=== PATIENT | female | born 1955 | race Caucasian/White ===

== ENCOUNTER 2016-09-28 12:27 | Inpatient (IN) | payer OTHER ==
[~2016-09-28] VITALS: Ht 170.2 cm; Wt 72.5 kg
[~2016-09-28 12:27] MED LIST: CLIN-73 PO; DIPH-387 PO; EPIN0.3P8 SQ; FIORICET PO; HYDR-3498 PO; METF500T4 PO; ONDA4TAB8 PO; PANT40VI7 PO; PRED20TA; PRED50TA PO; QUETIAPINE; TRAZ50TA18 PO; TRAZODONE; ZOC10 PO; [UNRECOGNIZED DRUG - CODE]; prozac
[2016-09-28] MEDS ORDERED: ONDANSETRON 4 MG INJ IV STA (14:46)
[2016-09-28] MEDS ORDERED: KETOROLAC 15 MG INJ IV STA (14:46)
[2016-09-28] MEDS ORDERED: SOD CHLORIDE 0.9% 1,000 ML IV STA (14:46)
[2016-09-28] MEDS ORDERED: ACET-141 PO (15:05)
[2016-09-28] MEDS ORDERED: METF500T4 PO (15:05)
[2016-09-28] MEDS ORDERED: QUET50TA16 PO (15:06)
[2016-09-28] MEDS ORDERED: RANI300T PO (15:06)
[2016-09-28] MEDS ORDERED: SIMV40TA2 PO (15:06)
[2016-09-28] MEDS ORDERED: CHOL400T10 PO (15:07)
[2016-09-28] MEDS ORDERED: TRAZ50TA18 PO (15:07)
[2016-09-28] MEDS ORDERED: PANT40TA4 PO (15:08)
[2016-09-28] MEDS ORDERED: MONT10TA24 PO (15:08)
[2016-09-28] MEDS ORDERED: BEN50 PO (15:09)
[2016-09-28] MEDS ORDERED: FLUO20CA22 PO (15:09)
[2016-09-28 15:17] LABS: ALBUMIN 4.7 g/dl (3.3-4.9)
[2016-09-28 15:18] LABS: CHLORIDE 100 mmol/L (97-110); POTASSIUM 4.5 mmol/L (3.5-5.1); SODIUM 144 mmol/L (135-144)
[2016-09-28 15:20] LABS: ALBUMIN/GLOBULIN RATIO 1.27; ANION GAP 19 (8-16); BILIRUBIN,INDIRECT 0.7 mg/dl (0-1.1); BILIRUBIN,TOTAL 1.4 mg/dl (0.2-1.3); CARBON DIOXIDE 30 mmol/L (21-31); CREATININE 0.67 mg/dl (0.44-1.00); TOTAL PROTEIN 8.4 g/dl (6.1-8.1)
[2016-09-28 15:21] LABS: ALANINE AMINOTRANSFERASE 803 IU/L (13-69); ALKALINE PHOSPHATASE 225 IU/L (42-121); BLOOD UREA NITROGEN 14 mg/dl (7-20); CALCIUM 10.3 mg/dl (8.4-10.2); GLUCOSE 171 mg/dl (70-220)
[2016-09-28 15:31] LABS: ASPARTATE AMINO TRANSFERASE 890 IU/L (15-46)
[2016-09-28 15:35] LABS: BASOPHILS % 0.3 % (0.0-2.0); CONDITION 1; EOSINOPHILS % 0.1 % (0.0-7.0); HEMATOCRIT 44.5 % (37.0-47.0); HEMOGLOBIN 15.2 g/dl (12.0-16.0); LYMPHOCYTES # 1.6 10^3/ul (0.8-2.9); LYMPHOCYTES % 15.5 % (15.0-51.0); MEAN CORPUSCULAR HEMOGLOBIN 28.7 pg (29.0-33.0); MEAN CORPUSCULAR HGB CONC 34.1 g/dl (32.0-37.0); MEAN CORPUSCULAR VOLUME 84.1 fl (82.0-101.0); MEAN PLATELET VOLUME 8.5 fl (7.4-10.4); MONOCYTE # 0.6 10^3/ul (0.3-0.9); MONOCYTES % 6.1 % (0.0-11.0); NEUTROPHIL # 8.3 10^3/ul (1.6-7.5); PLATELET COUNT 305 10^3/UL (140-440); RED BLOOD COUNT 5.29 10^6/ul (4.20-5.40); RED CELL DISTRIBUTION WIDTH 13.5 % (11.5-14.5); UNCORRECTED WBC 10.6 10^3/ul (4.8-10.8); WHITE BLOOD COUNT 10.6 10^3/ul (4.8-10.8)
[2016-09-28 15:36] LABS: TROPONIN-I < 0.012 ng/ml (0.00-0.12)
[2016-09-28 16:39] LABS: ADD UMIC YES; URINE BILIRUBIN (Dip) 2+ (NEGATIVE); URINE BLOOD (Dip) NEGATIVE (NEGATIVE); URINE COLOR DK. YELLOW (YELLOW); URINE GLUCOSE (Dip) NEGATIVE (NEGATIVE); URINE KETONES (Dip) TRACE (NEGATIVE); URINE LEUKOCYTE ESTERASE (Dip) NEGATIVE (NEGATIVE); URINE NITRITE (Dip) NEGATIVE (NEGATIVE); URINE TOTAL PROTEIN (Dip) TRACE (NEGATIVE); URINE UROBILINOGEN (Dip) 2.0 E.U./dL (0.1-1.0)
[2016-09-28 16:47] LABS: ICTOTEST POSITIVE (NEGATIVE)
[2016-09-28 16:48] LABS: BACTERIA,URINE RARE; SQUAMOUS EPITHELIAL CELL,UR FEW; URINE RBCS 0-2 /HPF (0)
--- NOTE | 2016-09-28 17:15 | RADRPT ---
PROCEDURE: Right upper quadrant abdominal ultrasound. CLINICAL INDICATION: Abdominal pain TECHNIQUE: Cervantes scale and color doppler ultrasound images of the right upper quadrant. COMPARISON: Abdominal ultrasound 09/15/2012 FINDINGS: Pancreas: Visualized portions appear of normal echogenicity, no focal lesions. Liver: Morphology: Normal in size and contour. Echogenicity: Increased echogenicity of the liver parenchyma suggestive of hepatic steatosis. Focal lesions: None. Main portal vein: Patent with hepatopetal flow. Biliary System: Normal appearing gallbladder wall. Small gallstones are seen layering within the gallbladder. No intrahepatic biliary dilatation. Common bile duct measures 5.4 mm in maximal dimension. Kidneys: Right 10.3 cm in length. Right renal cortical thickness is preserved. Normal echogenicity. No hydronephrosis. No renal calculi. No focal lesions. No free fluid identified. IMPRESSION: Increased echogenicity of the liver parenchyma suggestive of hepatic steatosis. Cholelithiasis without evidence of abnormal gallbladder wall thickening to suggest cholecystitis. Normal caliber of the intrahepatic and extrahepatic biliary system. Unchanged from the previous examination. RPTAT: AADD .Aryan Torrez MD, MD Date Time Electronically viewed and signed by .Aryan Torrez MD, on 09/28/2016 17:14 .B/
--- NOTE | 2016-09-28 18:54 | RADRPT ---
PROCEDURE: CT Abdomen and Pelvis without contrast. CLINICAL INDICATION: Transaminitis TECHNIQUE: CT scan of the abdomen and pelvis without contrast was performed without intravenous co ntrast. Coronal and sagittal reformatted images were obtained from the axial source images. Images were reviewed on a high-resolution PACS workstation. The total exam DLP equals 880 mGy-cm. COMPARISON: Same day ultrasound of the right abdomen, ultrasound from 09/15/2012 FINDINGS: There is minimal atelectasis within the lung bases. There is a small cyst or pneumatocele within th e right lower lobe measuring about 5 mm. The heart size is normal. The aorta and its branches are normal in size and caliber with mild atherosclerotic calcifications. The kidneys are symmetric in size and density. There is no perinephric fat stranding. There is no ne phroureterolithiasis or hydronephrosis. The ureters are normal in course and caliber. Evaluation of solid organs is limited due to the lack of intravenous contrast. There is diffuse fatt y infiltration of the liver. The liver measures about 19.4 cm cranial-caudal. There are gallstones within the gallbladder. There is no gallbladder wall thickening or surrounding inflammatory fat st randing. The spleen, adrenal glands, and pancreas are unremarkable. Evaluation of the gastrointestinal tract is limited due to the lack of oral contrast. There is a sm all hiatal hernia. The stomach is mildly distended and grossly unremarkable. The small bowel loops are normal in caliber without evidence of small bowel obstruction. The appendix is visualized, and is normal. A few diverticula are visualized within the descending colon. There is no free intraper itoneal fluid or pneumoperitoneum. There are several shoddy mesenteric lymph nodes more prominent within the right abdomen measuring up to 9 mm in short axis diameter without significant lymphadenopathy. There is no retroperitoneal or pelvic lymphadenopathy. The bladder is mildly distended, but grossly unremarkable. The uterus and adnexa are unremarkable. There is no pelvic free fluid. There are no acute fractures. There is severe degenerative disk disease at L5-S1. Moderate osteoar throsis of both hips are also present with slight protrusio acetabuli, more prominent on the left. RPTAT: ZZ IMPRESSION: 1. Diffuse fatty infiltration of the liver with mild hepatomegaly. 2. Cholelithiasis. 3. Small hiatal hernia. 4. Diverticulosis without evidence for diverticulitis. .Kathryn Shannon MD, MD Date Time Electronically viewed and signed by .Kathryn Shannon MD, MD on 09/28/2016 18:54 .T/
[2016-09-28 19:03] VITALS: TEMP 98.1
--- NOTE | 2016-09-28 19:26 | ERD ---
ER Documentation Chief Complaint Date/Time DATE: 09/28/16 TIME: 19:25 Chief Complaint ap since last night nausea vomiting today. gen weakness HPI 61-year-old woman presents with epigastric abdominal pain which is sharp, nonradiating and nonexertional associated with burning and multiple episodes of clear nonbloody nonbilious emesis. She has been feeling weak today. She denies blood per rectum or melena, no diarrhea, no chest pain or shortness of breath, no headache or blurry vision. Patient denies previous episodes. ROS All systems reviewed and are negative except as per history of present illness. Medications Home Meds Reported Medications Diphenhydramine Hcl* (Benadryl*) 50 Mg Cap, 50 MG PO DAILY Y for ITCHING, CAP 09/28/16 Fluoxetine Hcl* (Fluoxetine Hcl*) 20 Mg Capsule, 20 MG PO DAILY, CAP 09/28/16 Pantoprazole* (Pantoprazole*) 40 Mg Tablet.dr, 40 MG PO DAILY, TAB 09/28/16 Montelukast Sodium* (Montelukast Sodium*) 10 Mg Tablet, 10 MG PO QHS, #30 TAB 09/28/16 Cholecalciferol* (Vitamin D*) 400 Unit Tablet, 400 UNIT PO DAILY, TAB 09/28/16 Trazodone Hcl* (Trazodone Hcl*) 50 Mg Tablet, 50 MG PO QHS, #30 TAB 09/28/16 Quetiapine Fumarate* (Seroquel*) 50 Mg Tablet, 50 MG PO HS, TAB 09/28/16 Ranitidine Hcl* (Ranitidine Hcl*) 300 Mg Tablet, 300 MG PO HS, #30 TAB 09/28/16 Simvastatin* (Zocor*) 40 Mg Tablet, 40 MG PO QHS, #30 TAB 09/28/16 Acetaminophen* (Acetaminophen*) 500 MG Extra Strength Tablet, 500 MG PO DAILY Y for PAIN AND OR ELEVATED TEMP, TAB 09/28/16 Metformin* (Glucophage*) 500 Mg Tab, 500 MG PO BID, #60 TAB 09/28/16 Discontinued Reported Medications Trazodone Hcl* (Trazodone Hcl*) 50 Mg Tablet, 50 MG PO QHS, #30 TAB 09/28/16 Epinephrine (Epipen) 0.3 Mg/0.3/Syringe Pen.injctr, 0.3 MG SQ PRN 1/30/13 Trazodone Hcl* (Desyrel*) 50 Mg Tablet, 50 MG PO DAILY 09/15/12 Metformin* (Glucophage*) 500 Mg Tab, 500 MG PO DAILY 09/15/12 Diphenhydramine Hcl (Diphenhydramine Hcl) 50 Mg Capsule, 50 MG PO QID 09/15/12 Simvastatin (Simvastatin) 10 Mg Tablet, 10 MG PO HS 09/15/12 Pantoprazole* (Protonix* IV) 40 Mg Soln, 40 MG PO DAILY 09/15/12 Loratadine* (Allergy Relief*) 10 Mg Tablet 06/05/10 Prednisone (Prednisone) 20 Mg Tablet 06/05/10 [seroquel,trazadone] No Conflict Check 05/18/10 [prozac] No Conflict Check 05/18/10 Discontinued Scripts Ondansetron Hcl* (Zofran*) 4 Mg Tablet, 4 MG PO Q6H for NAUSEA AND/OR VOMITING, #30 TAB Prov:FRANDY RODRIGUEZ PA-C 08/10/16 Acetamin/Butalbital/Caffeine* (Fioricet*) [id number] Tab, 1 TAB PO Q6H Y for PAIN, #15 TAB Prov:FRANDY RODRIGUEZ PA-C 08/10/16 Clindamycin Hcl* (Clindamycin Hcl*) 300 Mg Capsule, 450 MG PO TID for 10 Days, CAP Prov:RON HERNANDEZ 02/19/16 Hydrocodone Bit-Acetaminophen* ([place]way*) 5-325 Mg Tab, 1 TAB PO Q6 Y for PAIN, # 20 TAB Prov:RON HERNANDEZ 02/19/16 Prednisone* (Prednisone*) 50 Mg Tablet, 60 MG PO DAILY for 5 Days, TAB Prov:THEODORA CORONEL NP 04/29/15 Allergies Allergies: Coded Allergies: ibuprofen (Verified Allergy, Severe, 09/28/16) aspirin (Verified Allergy, Mild, 09/28/16) peanut (Verified Allergy, Unknown, 09/28/16) PMhx/Soc Obesity, diabetes mellitus, hypertension, chronic pain History of Surgery: Yes (NECK//BREAST BIOPSY) Anesthesia Reaction: No Hx Neurological Disorder: No Hx Respiratory Disorders: Yes (ASTHMA) Hx Cardiac Disorders: No Hx Psychiatric Problems: Yes (ON PROZAC) Hx Miscellaneous Medical Probl: Yes (GERD/CHRONIC PAIN/HIGH CHOLESTEROL/DM) Hx Alcohol Use: No Hx Substance Use: No Hx Tobacco Use: Yes Smoking Status: Never smoker FmHx Family History: diabetes Physical Exam Vitals Vital Signs Date Time Temp Pulse Resp B/P Pulse Ox O2 Delivery O2 Flow Rate FiO2 09/28/16 19:03 98.1 78 16 124/74 98 09/28/16 17:39 78 18 141/98 99 09/28/16 15:00 80 18 141/69 99 09/28/16 12:34 98.5 102 20 154/70 98 Physical Exam GENERAL: Well-developed, well-nourished, deep HEENT: Dry mucous membranes, pink conjunctiva, no cervical spine tenderness or step-off deformities, no goiter, no jaundice or icterus, extraocular movements intact without pain. No submandibular induration, and no pharyngeal erythema NEURO: Alert and oriented 3, cranial nerves II through XII intact bilaterally, pupils equal round reactive to light, no focal deficits or facial asymmetry, sensation intact distally Strength 5/5 in upper and lower extremities bilaterally CARDIAC: Regular rate and rhythm, no murmurs rubs or gallops LUNGS: Clear bilaterally no wheezing crackles or stridor ABDOMEN: Soft nontender, no guarding, no rigidity, no rebound, no psoas sign no obturator sign. Normoactive bowel sounds SKIN: Warm and dry to touch, no abrasions, contusions, or hematomas, no lacerations, no ecchymosis, no target lesions, and without ulcers EXTREMITIES: No clubbing cyanosis or edema, calves are bilaterally symmetrical, no Homans sign, no popliteal cord sign. Distal pulses equal and bilateral PSYCH: Normal affect without agitation or irritability Result Diagram: 09/28/16 1501 09/28/16 1501 Results 24 hrs Laboratory Tests Test 09/28/16 15:01 09/28/16 16:30 Alanine Aminotransferase (ALT/SGPT) 803IU/L Albumin 4.7g/dl Albumin/Globulin Ratio 1.27 Alkaline Phosphatase 225IU/L Anion Gap 19 Aspartate Amino Transf (AST/SGOT) 890IU/L Basophils # 0.010^3/ul Basophils % 0.3% Blood Morphology Comment Blood Urea Nitrogen 14mg/dl Calcium Level 10.3mg/dl Carbon Dioxide Level 30mmol/L Chloride Level 100mmol/L Creatinine 0.67mg/dl Direct Bilirubin 0.70mg/dl Eosinophils # 0.010^3/ul Eosinophils % 0.1% Globulin 3.70g/dl Glucose Level 171mg/dl Hematocrit 44.5% Hemoglobin 15.2g/dl Indirect Bilirubin 0.7mg/dl Lipase 96U/L Lymphocytes # 1.610^3/ul Lymphocytes % 15.5% Mean Corpuscular Hemoglobin 28.7pg Mean Corpuscular Hemoglobin Concent 34.1g/dl Mean Corpuscular Volume 84.1fl Mean Platelet Volume 8.5fl Monocytes # 0.610^3/ul Monocytes % 6.1% Neutrophils # 8.310^3/ul Neutrophils % 78.0% Nucleated Red Blood Cells # 0.010^3/ul Nucleated Red Blood Cells % 0.0/100WBC Platelet Count 87784^3/UL Potassium Level 4.5mmol/L Red Blood Count 5.2910^6/ul Red Cell Distribution Width 13.5% Sodium Level 144mmol/L Total Bilirubin 1.4mg/dl Total Protein 8.4g/dl Troponin I < 0.012ng/ml White Blood Count 10.610^3/ul Urine Bacteria RARE Urine Bilirubin 2+ Urine Clarity CLEAR Urine Color DK. YELLOW Urine Glucose NEGATIVE% Urine Hemoglobin NEGATIVE Urine Ictotest POSITIVE Urine Ketones TRACE Urine Leukocyte Esterase NEGATIVE Urine Microscopic RBC 0-2/HPF Urine Microscopic WBC 0-2/HPF Urine Nitrite NEGATIVE Urine Specific [place] 1.015 Urine Squamous Epithelial Cells FEW Urine Total Protein TRACE Urine Urobilinogen 2.0 E.U./dL Urine pH 7.0 Current Medications Medications (Trade) Dose Ordered Sig/Julio Route PRN Reason Start Time Stop Time Status Last Admin Dose Admin Sodium Chloride (NS) 1,000 ml @ 1,000 mls/hr Q1H STAT IV 09/28/16 14:46 09/28/16 15:45 DC 09/28/16 14:59 Ondansetron HCl (Zofran Inj) 4 mg ONCE STAT IV 09/28/16 14:46 09/28/16 14:47 DC 09/28/16 15:00 Ketorolac Tromethamine (Toradol) 15 mg ONCE STAT IV 09/28/16 14:46 09/28/16 14:47 DC 09/28/16 14:59 Procedures/MDM IV line was established patient was placed on bus monitor rhythm strip revealed a sinus rhythm at about 90 bpm with upright P and T waves. Patient was afebrile. EKG performed, read by me: 90 bpm, normal sinus rhythm, left axis, no acute ST segment changes, narrow QRS complex, with good R-wave progression in precordial leads. I administered 1 L normal saline intravenously, Zofran 4 mg IV, and Toradol 15 mg IV with good response. Gallbladder ultrasound was performed revealing cholelithiasis although CBD was within normal limits, positive hepatic steatosis, no gallbladder wall thickening. Please refer to radiologist dictation for full report. CT scan of the abdomen and pelvis was performed again revealing fatty infiltration of the liver and cholelithiasis although no acute pancreatitis or cholecystitis was noted. Please refer to radiologist dictation for full report. CBC was unremarkable, electrolytes normal liver function tests revealed elevated total bilirubin at 1.4, AST/ALT elevated out 890/803, alkaline phosphatase elevated at 225, lipase normal, troponin was negative. Urinalysis was negative for infection. I spoke to the steel post installer Dr. Arguello regarding the patient's presentation, symptomatology, and lab values he recommended MRCP in the morning and kindly agreed to consult the patient. Departure Diagnosis: Primary Impression: Hepatic steatosis Additional Impressions: Transaminitis Hyperbilirubinemia Cholelithiasis Cholelithiasis location: gallbladder Cholecystitis presence: without cholecystitis Biliary obstruction: with biliary obstruction Qualified Code: K80.21 - Calculus of gallbladder with biliary obstruction but without cholecystitis Condition: MARYANNE Patterson MD Sep 28, 2016 19:26
--- NOTE | 2016-09-28 20:01 | HP ---
Date/Time of Note Date/Time of Note DATE: 09/28/16 TIME: 20:01 Assessment/Plan VTE Prophylaxis VTE Prophylaxis Intervention: SCD's Assessment/Plan Assessment/Plan PROBLEMS: Acute abd pain likely 2/2 biliary colic from #2 cholelithiasis r/o choledocholithiasis Hyperbilirubinemia with Transaminitis 2/2 #2 versus Fatty liver tobacco abuse dyslipidemia depression: stable Chronic asthma: stable w/o exacerbation Chronic pain DM type 2 GERD Transaminitis 2/2 #2 versus Fatty liver PLAN: admit med surg Hydration / pain control / antiemetics GI / Surgical consult MRCP>ERCP if indicated, defer to GI Tobacco cessation counselling done and will continue to be reinforced throughout hospitalization. Home meds Supportive care PROPHYLAXIS: SCDS / Protonix HPI/ROS Admit Date/Time Admit Date/Time 09.28.16 Hx of Present Illness PRESENTING COMPLAINT:abd pain x 1 day HISTORY OF PRESENTING COMPLAINT: 61 yo F with PMH that includes gallstones, DM2 and GERd who presents today with eipgastric / RUQ pain x1 d ay associated with nausea and vomiting. She has had similar before and was told it was due to gallstones. Also has a hx of GERD but pain is said to be different. Denies fever , chest pain or palpitations. ROS 12 point review if systems was done and pertinent findings are as noted. 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 Past Surgical History * Neck surgery * C/section x1 * breast biopsy Social History Alcohol Use: none Smoking Status: Current every day smoker Drug Use: none Exam/Review of Systems Vital Signs Vitals VS - Last 72 Hours, by Label Date Time Temp Pulse Resp B/P Pulse Ox O2 Delivery O2 Flow Rate FiO2 09/28/16 19:03 98.1 78 16 124/74 98 09/28/16 17:39 78 18 141/98 99 09/28/16 15:00 80 18 141/69 99 09/28/16 12:34 98.5 102 20 154/70 98 Vital Signs Date Time Temp Pulse Resp B/P Pulse Ox O2 Delivery O2 Flow Rate FiO2 09/28/16 19:03 98.1 78 16 124/74 98 Exam Constitutional: alert, oriented Psych: anxiety Head: atraumatic, other (R sided facial droop) Eyes: icteric ENMT: mucosa pink and moist Neck: non-tender, supple Respiratory: clear to auscultation, normal air movement Cardiovascular: regular rate and rhythm, No murmurs/extra sounds Gastrointestinal: bowel sounds, soft, tender (mildly RUQ and epigastric area), No rebound or guarding Musculoskeletal: nl extremities to inspection Extremities: No edema Neurological: nl mental status, No confused, No focal weakness, No nl speech Labs Result Diagram: 09/28/16 1501 09/28/16 1501 Procedures Procedures Laboratory Tests Test 09/28/16 15:01 09/28/16 16:30 Alanine Aminotransferase (ALT/SGPT) 803IU/L Albumin 4.7g/dl Albumin/Globulin Ratio 1.27 Alkaline Phosphatase 225IU/L Anion Gap 19 Aspartate Amino Transf (AST/SGOT) 890IU/L Basophils # 0.010^3/ul Basophils % 0.3% Blood Morphology Comment Blood Urea Nitrogen 14mg/dl Calcium Level 10.3mg/dl Carbon Dioxide Level 30mmol/L Chloride Level 100mmol/L Creatinine 0.67mg/dl Direct Bilirubin 0.70mg/dl Eosinophils # 0.010^3/ul Eosinophils % 0.1% Globulin 3.70g/dl Glucose Level 171mg/dl Hematocrit 44.5% Hemoglobin 15.2g/dl Indirect Bilirubin 0.7mg/dl Lipase 96U/L Lymphocytes # 1.610^3/ul Lymphocytes % 15.5% Mean Corpuscular Hemoglobin 28.7pg Mean Corpuscular Hemoglobin Concent 34.1g/dl Mean Corpuscular Volume 84.1fl Mean Platelet Volume 8.5fl Monocytes # 0.610^3/ul Monocytes % 6.1% Neutrophils # 8.310^3/ul Neutrophils % 78.0% Nucleated Red Blood Cells # 0.010^3/ul Nucleated Red Blood Cells % 0.0/100WBC Platelet Count 97229^3/UL Potassium Level 4.5mmol/L Red Blood Count 5.2910^6/ul Red Cell Distribution Width 13.5% Sodium Level 144mmol/L Total Bilirubin 1.4mg/dl Total Protein 8.4g/dl Troponin I < 0.012ng/ml White Blood Count 10.610^3/ul Urine Bacteria RARE Urine Bilirubin 2+ Urine Clarity CLEAR Urine Color DK. YELLOW Urine Glucose NEGATIVE% Urine Hemoglobin NEGATIVE Urine Ictotest POSITIVE Urine Ketones TRACE Urine Leukocyte Esterase NEGATIVE Urine Microscopic RBC 0-2/HPF Urine Microscopic WBC 0-2/HPF Urine Nitrite NEGATIVE Urine Specific [place] 1.015 Urine Squamous Epithelial Cells FEW Urine Total Protein TRACE Urine Urobilinogen 2.0 E.U./dL Urine pH 7.0 Current Medications Medications (Trade) Dose Ordered Sig/Julio Route PRN Reason Start Time Stop Time Status Last Admin Dose Admin Sodium Chloride (NS) 1,000 ml @ 1,000 mls/hr Q1H STAT IV 09/28/16 14:46 09/28/16 15:45 DC 09/28/16 14:59 1,000 MLS/HR Ondansetron HCl (Zofran Inj) 4 mg ONCE STAT IV 09/28/16 14:46 09/28/16 14:47 DC 09/28/16 15:00 4 MG Ketorolac Tromethamine (Toradol) 15 mg ONCE STAT IV 09/28/16 14:46 09/28/16 14:47 DC 09/28/16 14:59 15 MG PROCEDURE: CT Abdomen and Pelvis without contrast. CLINICAL INDICATION: Transaminitis TECHNIQUE: CT scan of the abdomen and pelvis without contrast was performed without intravenous contrast. Coronal and sagittal reformatted images were obtained from the axial source images. Images were reviewed on a high- resolution PACS workstation. The total exam DLP equals 880 mGy-cm. COMPARISON: Same day ultrasound of the right abdomen, ultrasound from 2012 FINDINGS: There is minimal atelectasis within the lung bases. There is a small cyst or pneumatocele within the right lower lobe measuring about 5 mm. The heart size is normal. The aorta and its branches are normal in size and caliber with mild atherosclerotic calcifications. The kidneys are symmetric in size and density. There is no perinephric fat stranding. There is no nephroureterolithiasis or hydronephrosis. The ureters are normal in course and caliber. Evaluation of solid organs is limited due to the lack of intravenous contrast. There is diffuse fatty infiltration of the liver. The liver measures about 19.4 cm cranial-caudal. There are gallstones within the gallbladder. There is no gallbladder wall thickening or surrounding inflammatory fat stranding. The spleen, adrenal glands, and pancreas are unremarkable. Evaluation of the gastrointestinal tract is limited due to the lack of oral contrast. There is a small hiatal hernia. The stomach is mildly distended and grossly unremarkable. The small bowel loops are normal in caliber without evidence of small bowel obstruction. The appendix is visualized, and is normal. A few diverticula are visualized within the descending colon. There is no free intraperitoneal fluid or pneumoperitoneum. There are several shoddy mesenteric lymph nodes more prominent within the right abdomen measuring up to 9 mm in short axis diameter without significant lymphadenopathy. There is no retroperitoneal or pelvic lymphadenopathy. The bladder is mildly distended, but grossly unremarkable. The uterus and adnexa are unremarkable. There is no pelvic free fluid. There are no acute fractures. There is severe degenerative disk disease at L5- S1. Moderate osteoarthrosis of both hips are also present with slight protrusio acetabuli, more prominent on the left. RPTAT: ZZ IMPRESSION: 1. Diffuse fatty infiltration of the liver with mild hepatomegaly. 2. Cholelithiasis. 3. Small hiatal hernia. 4. Diverticulosis without evidence for diverticulitis. .Kathryn Shannon MD, Date Time Electronically viewed and signed by .Kathryn Shannon MD, on 09/28/2016 18: 54 PROCEDURE: Right upper quadrant abdominal ultrasound. CLINICAL INDICATION: Abdominal pain TECHNIQUE: Cervantes scale and color doppler ultrasound images of the right upper quadrant. COMPARISON: Abdominal ultrasound 09/15/2012 FINDINGS: Pancreas: Visualized portions appear of normal echogenicity, no focal lesions. Liver: Morphology: Normal in size and contour. Echogenicity: Increased echogenicity of the liver parenchyma suggestive of hepatic steatosis. Focal lesions: None. Main portal vein: Patent with hepatopetal flow. Biliary System: Normal appearing gallbladder wall. Small gallstones are seen layering within the gallbladder. No intrahepatic biliary dilatation. Common bile duct measures 5.4 mm in maximal dimension. Kidneys: Right 10.3 cm in length. Right renal cortical thickness is preserved. Normal echogenicity. No hydronephrosis. No renal calculi. No focal lesions. No free fluid identified. IMPRESSION: Increased echogenicity of the liver parenchyma suggestive of hepatic steatosis. Cholelithiasis without evidence of abnormal gallbladder wall thickening to suggest cholecystitis. Normal caliber of the intrahepatic and extrahepatic biliary system. Unchanged from the previous examination. RPTAT: AADD .Aryan Torrez MD, Date Time Electronically viewed and signed by .Aryan Torrez MD, on 09/28/2016 17:14 PADMA ESTEBAN Sep 28, 2016 20:01
[2016-09-28 21:10] VITALS: BP 138/72; RESP 16
[2016-09-28 21:30] VITALS: Ht 170.2 cm; Wt 72.5 kg
[2016-09-28] MEDS ORDERED: ONDANSETRON 4 MG INJ IV PRN (22:00)
[2016-09-28] MEDS ORDERED: SOD CHLORIDE 0.9% 1,000 ML IV SCH (22:00)
[2016-09-28] MEDS: metFORMIN 500 MG TAB PO SCH (22:43)
[2016-09-29] MEDS: ACCUCHECK XX SCH (02:28)
[2016-09-29 05:04] LABS: BASOPHIL # 0.1 10^3/ul (0.0-0.1); BASOPHILS % 0.6 % (0.0-2.0); EOSINOPHILS # 0.2 10^3/ul (0.0-0.5); HEMATOCRIT 36.9 % (37.0-47.0); HEMOGLOBIN 12.5 g/dl (12.0-16.0); LYMPHOCYTES # 3.5 10^3/ul (0.8-2.9); LYMPHOCYTES % 37.1 % (15.0-51.0); MEAN CORPUSCULAR HEMOGLOBIN 28.7 pg (29.0-33.0); MEAN CORPUSCULAR HGB CONC 33.9 g/dl (32.0-37.0); MEAN CORPUSCULAR VOLUME 84.7 fl (82.0-101.0); MEAN PLATELET VOLUME 8.5 fl (7.4-10.4); MONOCYTE # 0.6 10^3/ul (0.3-0.9); MONOCYTES % 6.5 % (0.0-11.0); NEUTROPHIL # 5.1 10^3/ul (1.6-7.5); NEUTROPHILS % 53.8 % (39.0-77.0); PLATELET COUNT 262 10^3/UL (140-440); RED BLOOD COUNT 4.36 10^6/ul (4.20-5.40); UNCORRECTED WBC 9.4 10^3/ul (4.8-10.8); WHITE BLOOD COUNT 9.4 10^3/ul (4.8-10.8)
[2016-09-29 05:24] LABS: ALBUMIN 3.5 g/dl (3.3-4.9)
[2016-09-29 05:25] LABS: POTASSIUM 3.9 mmol/L (3.5-5.1)
[2016-09-29] MEDS: PANTOPRAZOLE 40 MG INJ IV SCH (05:26)
[2016-09-29 05:27] LABS: ALBUMIN/GLOBULIN RATIO 1.2; BILIRUBIN,DIRECT 0.5 mg/dl (0.00-0.20); BILIRUBIN,INDIRECT 0.9 mg/dl (0-1.1); BILIRUBIN,TOTAL 1.4 mg/dl (0.2-1.3); CREATININE 0.67 mg/dl (0.44-1.00); TOTAL PROTEIN 6.4 g/dl (6.1-8.1)
[2016-09-29 05:28] LABS: CALCIUM 8.8 mg/dl (8.4-10.2); CHOL/HDL RATIO 5.5 RATIO; MAGNESIUM 1.8 mg/dl (1.7-2.5)
[2016-09-29 05:47] LABS: CONDITION 1
[2016-09-29 07:38] VITALS: BP 132/67; RESP 20
[2016-09-29] MEDS: INSULIN ASPART [NOVOLOG] 3 ML PEN SC SCH ×4 (08:15→21:00)
[2016-09-29] MEDS: metFORMIN 500 MG TAB PO SCH ×2 (09:09→17:13)
[2016-09-29] MEDS: FLUOXETINE 20 MG CAP PO SCH (09:09)
[2016-09-29] MEDS: CHOLECALCIFEROL 400 UNITS TAB PO SCH (09:09)
--- NOTE | 2016-09-29 14:38 | PN ---
Date/Time of Note Date/Time of Note DATE: 09/29/16 TIME: 14:35 Assessment/Plan VTE Prophylaxis VTE Prophylaxis Intervention: SCD's Lines/Catheters IV C[facility]ter Type (from [facility]): Saline Lock Urinary Cath still in place: No Assessment/Plan Chief Complaint/Hosp Course 1. Acute abd pain likely 2/2 biliary colic from cholelithiasis r/o choledocholithiasis -MRCP and GI and Surgery consults 2. Hyperbilirubinemia with Transaminitis 2/2 above versus Fatty liver 3. Chronic asthma: stable w/o exacerbation 4. DM type 2 -cont Metformin PPx- SCD's Problems: Subjective 24 Hr Interval Summary Gastrointestinal: pain Exam/Review of Systems Vital Signs Vitals Vital Signs Date Time Temp Pulse Resp B/P Pulse Ox O2 Delivery O2 Flow Rate FiO2 09/29/16 07:38 97.4 89 20 132/67 95 09/28/16 20:44 Room Air Intake and Output 09/28/16 09/28/16 09/29/16 15:00 23:00 07:00 Intake Total 1580 ml Output Total 900 ml Balance 680 ml Exam Constitutional: alert, oriented Respiratory: clear to auscultation Cardiovascular: regular rate and rhythm Gastrointestinal: soft, tender, No distended Musculoskeletal: nl extremities to inspection Results Result Diagram: 09/29/16 0430 09/29/16 0430 Results 24 hrs Laboratory Tests Test 09/28/16 15:01 09/28/16 16:30 09/28/16 19:00 09/28/16 21:13 Alanine Aminotransferase (ALT/SGPT) 803 H Albumin 4.7 Albumin/Globulin Ratio 1.27 Alkaline Phosphatase 225 H Anion Gap 19 H Aspartate Amino Transf (AST/SGOT) 890 H Basophils # 0.0 Basophils % 0.3 Blood Morphology Comment Blood Urea Nitrogen 14 Calcium Level 10.3 H Carbon Dioxide Level 30 Chloride Level 100 Creatinine 0.67 Direct Bilirubin 0.70 H Eosinophils # 0.0 Eosinophils % 0.1 Globulin 3.70 H Glucose Level 171 Hematocrit 44.5 Hemoglobin 15.2 Indirect Bilirubin 0.7 Lipase 96 Lymphocytes # 1.6 Lymphocytes % 15.5 Mean Corpuscular Hemoglobin 28.7 L Mean Corpuscular Hemoglobin Concent 34.1 Mean Corpuscular Volume 84.1 Mean Platelet Volume 8.5 Monocytes # 0.6 Monocytes % 6.1 Neutrophils # 8.3 H Neutrophils % 78.0 H Nucleated Red Blood Cells # 0.0 Nucleated Red Blood Cells % 0.0 Platelet Count 305 Potassium Level 4.5 Red Blood Count 5.29 Red Cell Distribution Width 13.5 Sodium Level 144 Total Bilirubin 1.4 H Total Protein 8.4 H Troponin I < 0.012 White Blood Count 10.6 Urine Bacteria RARE Urine Bilirubin 2+ H Urine Clarity CLEAR Urine Color DK. YELLOW Urine Glucose NEGATIVE Urine Hemoglobin NEGATIVE Urine Ictotest POSITIVE Urine Ketones TRACE H Urine Leukocyte Esterase NEGATIVE Urine Microscopic RBC 0-2 Urine Microscopic WBC 0-2 Urine Nitrite NEGATIVE Urine Specific [place] 1.015 Urine Squamous Epithelial Cells FEW Urine Total Protein TRACE Urine Urobilinogen 2.0 E.U./dL H Urine pH 7.0 Hepatitis A Antibody Total NEGATIVE Hepatitis B Surface Antibody NEGATIVE Hepatitis B Surface Antigen NEGATIVE Hepatitis C Antibody NEGATIVE Bedside Glucose 201 Test 09/29/16 02:23 09/29/16 04:30 09/29/16 07:39 09/29/16 12:12 Bedside Glucose 115 116 108 Alanine Aminotransferase (ALT/SGPT) 654 H Albumin 3.5 # Albumin/Globulin Ratio 1.20 Alkaline Phosphatase 183 H Anion Gap 12 # Aspartate Amino Transf (AST/SGOT) 532 H Basophils # 0.1 Basophils % 0.6 Blood Morphology Comment Blood Urea Nitrogen 12 Calcium Level 8.8 Carbon Dioxide Level 30 Chloride Level 104 Cholesterol Level 190 Cholesterol/HDL Ratio 5.5 Creatinine 0.67 Direct Bilirubin 0.50 #H Eosinophils # 0.2 Eosinophils % 2.0 Globulin 2.90 Glucose Level 111 # HDL Cholesterol 34 L Hematocrit 36.9 L Hemoglobin 12.5 Hemoglobin A1c 6.7 H Indirect Bilirubin 0.9 LDL Cholesterol, Calculated 118 Lymphocytes # 3.5 H Lymphocytes % 37.1 Magnesium Level 1.8 Mean Corpuscular Hemoglobin 28.7 L Mean Corpuscular Hemoglobin Concent 33.9 Mean Corpuscular Volume 84.7 Mean Platelet Volume 8.5 Monocytes # 0.6 Monocytes % 6.5 Neutrophils # 5.1 Neutrophils % 53.8 Nucleated Red Blood Cells # 0.0 Nucleated Red Blood Cells % 0.0 Platelet Count 262 Potassium Level 3.9 Red Blood Count 4.36 Red Cell Distribution Width 14.0 Sodium Level 142 Total Bilirubin 1.4 H Total Protein 6.4 # Triglycerides Level 192 H White Blood Count 9.4 Medications Medications Current Medications Ondansetron HCl (Zofran Inj) 4 mg Q6H PRN IV NAUSEA AND/OR VOMITING; Start 08/02 at 22:00 Pantoprazole (Protonix Iv) 40 mg DAILY@06 IV Last administered on 09/29/16 05: 26; Admin Dose 40 MG; Start 09/29/16 at 06:00 Morphine Sulfate (morphine) 2 mg Q4H PRN IV pain; Start 09/28/16 at 22:00 Cholecalciferol (Vitamin D) 400 units DAILY PO Last administered on 09/29/16 09:09; Admin Dose 400 UNITS; Start 09/29/16 at 09:00 Fluoxetine HCl (Prozac) 20 mg DAILY PO Last administered on 09/29/16 09:09; Admin Dose 20 MG; Start 09/29/16 at 09:00 Montelukast Sodium (Singulair) 10 mg QHS PO ; Start 09/29/16 at 21:00 Quetiapine Fumarate (Seroquel) 50 mg HS PO ; Start 09/29/16 at 21:00 Trazodone HCl (Desyrel) 50 mg QHS PO ; Start 09/29/16 at 21:00 Diagnostic Test (Pha) (Accucheck) 1 ea 02 XX Last administered on 09/29/16 02: 28; Admin Dose 1 EA; Start 09/29/16 at 02:00 Atorvastatin Calcium (Lipitor) 20 mg DAILY@21 PO ; Start 09/29/16 at 21:00 BRYAN MACHUCA Sep 29, 2016 14:38
[2016-09-29] MEDS ORDERED: GLUCOSE GEL 15 GRAM TUBE BUCCAL PRN (15:00)
[2016-09-29] MEDS ORDERED: GLUCOSE GEL 15 GRAM TUBE PO PRN ×2 (15:00)
[2016-09-29] MEDS ORDERED: GLUCAGON 1 MG INJ IM PRN (15:00)
[2016-09-29] MEDS ORDERED: DEXTROSE 50% 50 ML SYRINGE IV PRN ×2 (15:00)
--- NOTE | 2016-09-29 15:58 | RADRPT ---
PROCEDURE: MRI abdomen without contrast; MRCP CLINICAL INDICATION: abdominal pain TECHNIQUE: Multiplanar, multisequence imaging of the abdomen was obtained without contrast. Imagi ng includes axial and coronal T10-T2 fat-saturated images. In addition, a dedicated high T2 signal intensity MRCP images were obtained in multiple planes with 3-D reconstructions. COMPARISON: CT abdomen pelvis 09/28/2016 FINDINGS: The gallbladder is partially contracted with numerous layering gallstones within the gallbladder. T here is mild gallbladder wall thickening with trace pericholecystic fluid that is indeterminate. Th ere is no intrahepatic or extrahepatic biliary ductal dilatation. The common duct is diminutive in size and there are no filling defects seen. There is uniform signal intensity of the liver without evidence of mass. There is a loss of signal on the fat saturated images suggest for fatty infiltration which was seen on prior CT as well. Ther e is a flow void seen within the portal vein without gross evidence for portal vein thrombus. The kidneys are symmetric without hydronephrosis or mass. The adrenal glands are within normal limi ts. The pancreas is uniform without surrounding inflammation. There is no evidence of bowel obstruction or inflammatory changes of the mesentery. Of aortic ather osclerotic changes are visible. Degenerative changes are seen within the lumbar spine. There are n o enlarged lymph nodes. There is a retroaortic left renal vein. IMPRESSION: The gallbladder is contracted with mild gallbladder wall thickening that is indeterminate. Multiple layering gallstones are present. Trace pericholecystic fluid is seen which is of indeterminate sig nificance. If there is further concern for cholecystitis 10 nuclear medicine study can be performed . No evidence of biliary ductal dilatation or choledocholithiasis. Fatty liver. RPTAT: AA .Vielka George MD, MD Date Time Electronically viewed and signed by .Vielka George MD, MD on 09/29/2016 13:49 .J/
[2016-09-29 19:25] VITALS: BP 136/63; RESP 20
--- NOTE | 2016-09-29 19:37 | PN ---
Date/Time of Note Date/Time of Note DATE: 09/29/16 TIME: 19:33 Assessment/Plan Lines/Catheters IV Catheter Type (from [facility]): Saline Lock [place] in Place (from [facility]): No Assessment/Plan Chief Complaint/Hosp Course 1. Abdominal pain with cholelithiasis, questionable choledocholithiasis -Nothing by mouth -IV fluids -MRCP pending -Pain control 2. Transaminitis and hyper bilirubinemia probably sooner to above -As above 3. Diabetes mellitus -Nutrition and medication control 4. Dyslipidemia -Nutrition and medication control 5. GERD -PPI -Diet and lifestyle optimization 6. History of CVA with right-sided droop -Medical and cardiac optimization Thank you, Dictation #: [id number] Problems: Subjective 24 Hr Interval Summary Minimal pain. No fevers or chills. No nausea vomiting. No chest pain or shortness of breath. No visual or neurologic changes. No dysuria. Bowel function. MRCP Exam/Review of Systems Vital Signs Vitals Vital Signs Date Time Temp Pulse Resp B/P Pulse Ox O2 Delivery O2 Flow Rate FiO2 09/29/16 19:25 98.4 81 20 136/63 97 09/28/16 20:44 Room Air Intake and Output 09/28/16 09/28/16 09/29/16 15:00 23:00 07:00 Intake Total 1580 ml Output Total 900 ml Balance 680 ml Exam Constitutional: alert, oriented, No distress Psych: anxiety Head: atraumatic, normocephalic, No hematomas Eyes: EOMI, PERRL, nl conjunctiva, nl sclera, No icteric ENMT: mucosa pink and moist, nl external ears & nose, nl lips & teeth Neck: non-tender, supple, No jvd Respiratory: normal air movement, No congested cough, No labored breathing Cardiovascular: regular rate and rhythm, No edema Gastrointestinal: soft, tender (minimal without [place]), No distended, No rebound or guarding Musculoskeletal: nl extremities to inspection, No joint tenderness Extremities: normal pulses, No calf tenderness, No cyanosis Neurological: nl strength, No confused Skin: nl turgor, No diaphoresis, No rash or lesions Lymph: nl lymph nodes Results Result Diagram: 09/29/1642909/29/16429 KVNG OLIVA MD Sep 29, 2016 19:37
--- NOTE | 2016-09-29 20:22 | CONS ---
Date/Time of Note Date/Time of Note DATE: 09/29/16 TIME: 20:11 Assessment/Plan Assessment/Plan Additional Assessment/Plan Assessment: * Cholelithiasis/?cholecystitis * Abnormal liver function tests/no evidence of choledocholithiasis * Fatty liver * Diabetes mellitus type 2 * Dyslipidemia * History of GERD * History of asthma Plan: * Repeat liver function tests tomorrow * Reassess potential benefits of ERCP * Surgical follow-up consider cholecystectomy during this hospitalization this patient is poorly compliant Consultation Date/Type/Reason Admit Date/Time 09.28.16 Date of Consultation: Sep 29, 2016 Hx of Present Illness 67-year-old female with known history of cholelithiasis, previously recommended cholecystectomy but patient was noncompliant with recommendation. She presents to the emergency room complaining of epigastric abdominal pain and is noticed to have significant abnormality liver function test as well as confirmation of the cholelithiasis. Out of concern of possibility of choledocholithiasis in addition to cholelithiasis patient underwent MRCP with the following findings; MRCP 09/29/16 The gallbladder is contracted with mild gallbladder wall thickening that is indeterminate. Multiple layering gallstones are present. Trace pericholecystic fluid is seen which is of indeterminate significance. If there is further concern for cholecystitis 10 nuclear medicine study can be performed. No evidence of biliary ductal dilatation or choledocholithiasis. Fatty liver. The patient appears comfortable at this time her pain has improved and actually subsided. She denies nausea or vomiting at this time. Surgical evaluation in process. There appears to be no evidence of choledocholithiasis, I will monitor liver function tests tomorrow and determine any need or potential benefit from ERCP, this appears unlikely especially liver function tests show significant improvement. At any rate the patient should be considered for cholecystectomy as soon as possible as she clearly has symptomatic cholelithiasis and has proven herself to be noncompliant with recommendations. In view of the potential for ERCP the procedure was explained to the patient including risks benefits and alternatives. She is agreeable to proceed if we deem it necessary Constitutional: improved Eyes: no complaints ENT: no complaints Respiratory: no complaints Cardiovascular: no complaints Gastrointestinal: nausea, pain, No constipation, No diarrhea, No vomiting Genitourinary: No dysuria, No flank pain Musculoskeletal: no complaints Skin: no complaints Neurologic: no complaints Endocrine: no complaints Lymphatic: no complaints Psychological: anxiety Immunologic: no complaints Past Medical History * Cholelithiasis * Fatty liver * GERD * Diabetes mellitus type 2 * Hypertension * Dyslipidemia * Depression Past Surgical History Past Surgical Hx: no surgical history Family History Significant Family History: no pertinent family hx Social History Alcohol Use: none Smoking Status: Former smoker Drug Use: none Exam/Review of Systems Vital Signs Vitals Vital Signs Date Time Temp Pulse Resp B/P Pulse Ox O2 Delivery O2 Flow Rate FiO2 09/29/16 19:25 98.4 81 20 136/63 97 09/28/16 20:44 Room Air Intake and Output 09/28/16 09/28/16 09/29/16 15:00 23:00 07:00 Intake Total 1580 ml Output Total 900 ml Balance 680 ml Exam Constitutional: alert, obese, oriented, well developed, No distress Psych: nl mood/affect, no complaints Head: atraumatic, normocephalic Eyes: EOMI, PERRL, nl conjunctiva, nl lids, nl sclera ENMT: nl external ears & nose, nl lips & teeth, nl nasal mucosa & septum Neck: non-tender, supple Respiratory: clear to auscultation, normal air movement Cardiovascular: nl pulses, regular rate and rhythm Gastrointestinal: bowel sounds, distended, hepatomegaly, nl liver, spleen, soft , tender (Mild right upper quadrant tenderness), No ascites, No mass, No rebound or guarding, No splenomegaly Musculoskeletal: nl extremities to inspection Extremities: normal pulses Skin: nl turgor, No rash or lesions Lymph: nl lymph nodes Results Result Diagram: 09/29/16 04309/29/16 0430 Results 24 hrs Laboratory Tests Test 09/28/16 21:13 09/29/16 02:23 09/29/16 04:30 09/29/16 07:39 Bedside Glucose 201 115 116 Alanine Aminotransferase (ALT/SGPT) 654 H Albumin 3.5 # Albumin/Globulin Ratio 1.20 Alkaline Phosphatase 183 H Anion Gap 12 # Aspartate Amino Transf (AST/SGOT) 532 H Basophils # 0.1 Basophils % 0.6 Blood Morphology Comment Blood Urea Nitrogen 12 Calcium Level 8.8 Carbon Dioxide Level 30 Chloride Level 104 Cholesterol Level 190 Cholesterol/HDL Ratio 5.5 Creatinine 0.67 Direct Bilirubin 0.50 #H Eosinophils # 0.2 Eosinophils % 2.0 Globulin 2.90 Glucose Level 111 # HDL Cholesterol 34 L Hematocrit 36.9 L Hemoglobin 12.5 Hemoglobin A1c 6.7 H Indirect Bilirubin 0.9 LDL Cholesterol, Calculated 118 Lymphocytes # 3.5 H Lymphocytes % 37.1 Magnesium Level 1.8 Mean Corpuscular Hemoglobin 28.7 L Mean Corpuscular Hemoglobin Concent 33.9 Mean Corpuscular Volume 84.7 Mean Platelet Volume 8.5 Monocytes # 0.6 Monocytes % 6.5 Neutrophils # 5.1 Neutrophils % 53.8 Nucleated Red Blood Cells # 0.0 Nucleated Red Blood Cells % 0.0 Platelet Count 262 Potassium Level 3.9 Red Blood Count 4.36 Red Cell Distribution Width 14.0 Sodium Level 142 Total Bilirubin 1.4 H Total Protein 6.4 # Triglycerides Level 192 H White Blood Count 9.4 Test 09/29/16 12:12 09/29/16 17:13 Bedside Glucose 108 111 Medications Medications Current Medications Ondansetron HCl (Zofran Inj) 4 mg Q6H PRN IV NAUSEA AND/OR VOMITING; Start 08/02 at 22:00 Pantoprazole (Protonix Iv) 40 mg DAILY@06 IV Last administered on 09/29/16 05: 26; Admin Dose 40 MG; Start 09/29/16 at 06:00 Morphine Sulfate (morphine) 2 mg Q4H PRN IV pain; Start 09/28/16 at 22:00 Cholecalciferol (Vitamin D) 400 units DAILY PO Last administered on 09/29/16 09:09; Admin Dose 400 UNITS; Start 09/29/16 at 09:00 Fluoxetine HCl (Prozac) 20 mg DAILY PO Last administered on 09/29/16 09:09; Admin Dose 20 MG; Start 09/29/16 at 09:00 Montelukast Sodium (Singulair) 10 mg QHS PO ; Start 09/29/16 at 21:00 Quetiapine Fumarate (Seroquel) 50 mg HS PO ; Start 09/29/16 at 21:00 Trazodone HCl (Desyrel) 50 mg QHS PO ; Start 09/29/16 at 21:00 Diagnostic Test (Pha) (Accucheck) 1 ea 02 XX Last administered on 09/29/16 02: 28; Admin Dose 1 EA; Start 09/29/16 at 02:00 Atorvastatin Calcium (Lipitor) 20 mg DAILY@21 PO ; Start 09/29/16 at 21:00 Miscellaneous Information 1 ea NOTE XX ; Start 09/29/16 at 15:00 Glucose (Glutose) 15 gm Q15M PRN PO DECREASED GLUCOSE; Start 09/29/16 at 15:00 Glucose (Glutose) 22.5 gm Q15M PRN PO DECREASED GLUCOSE; Start 09/29/16 at 15: 00 Dextrose (D50w Syringe) 25 ml Q15M PRN IV DECREASED GLUCOSE; Start 09/29/16 at 15:00 Dextrose (D50w Syringe) 50 ml Q15M PRN IV DECREASED GLUCOSE; Start 09/29/16 at 15:00 Glucagon (Glucagen) 1 mg Q15M PRN IM DECREASED GLUCOSE; Start 09/29/16 at 15:00 Glucose (Glutose) 15 gm Q15M PRN BUCCAL DECREASED GLUCOSE; Start 09/29/16 at 15 :00 NORA PAYTON MD Sep 29, 2016 20:22
[2016-09-29] MEDS ORDERED: NON-FORMULARY/PATIENT OWN MED (Simvastatin* (Zocor*) 40 MG) PO SCH (21:00)
[2016-09-29] MEDS: QUETIAPINE 25 MG TAB PO SCH (21:11)
[2016-09-29] MEDS: ATORVASTATIN 20 MG TAB PO SCH (21:11)
[2016-09-29] MEDS: MONTELUKAST 10 MG TAB PO SCH (21:11)
[2016-09-29] MEDS: traZODone 50 MG TAB PO SCH (21:11)
--- NOTE | 2016-09-29 23:40 | CONS ---
DATE OF ADMISSION: 09/28/2016 DATE OF CONSULTATION: 09/28/2016 TYPE OF CONSULTATION: Surgical. REFERRING PHYSICIAN: Dr. Robert Maher CHIEF COMPLAINT: 1. Abdominal pain. 2. Cholelithiasis. 3. Possible choledocholithiasis. 4. Transaminitis. 5. Diffuse fatty infiltration of the liver with hepatomegaly. 6. Small hiatal hernia. 7. Diverticulosis. HISTORY OF PRESENT ILLNESS: Ms. Cristal Betts is a 61-year-old female with multiple comorbidit ies who presents with 1 day of epigastric and upper quadrant pain associated with nausea and vomitin g, without fevers or chills. No chest pain, no shortness of breath. No visual or neurologic changes. No dysuria. No vaginal discharge. No sick contacts. No palpitations. No change in charli l habits. In her workup, she was found to have gallstones and abnormal LFTs. CBC is within normal, mostly. S he was admitted and further care and treatment was instituted. Surgical consult is obtained for fur ther evaluation. PAST MEDICAL HISTORY: 1. Transaminitis. 2. Gallstones. 3. Diabetes. 4. Abdominal pain. 5. Hyperbilirubinemia. 6. Tobacco abuse. 7. Dyslipidemia. 8. Depression. 9. Chronic asthma. 10. Chronic pain. 11. Gastroesophageal reflux disease. 12. Previous CVA with residual mild right-sided facial droop and numbness. PAST SURGICAL HISTORY: 1. Neck surgery. 2. . 3. Breast biopsy. SOCIAL HISTORY: Smokes tobacco. No recreational drugs. No alcohol. FAMILY HISTORY: Noncontributory. REVIEW OF SYSTEMS: A 12-point review of systems negative last addressed in the HPI. PHYSICAL EXAMINATION: VITAL SIGNS: Temperature is 98.1, pulse 78, blood pressure 124/74, satting 98% on room air. GENERAL: No acute distress. PSYCH: Anxious. NEUROLOGIC: Alert and oriented, moves extremities grossly; however, has a right-sided facial droop. HEENT: Pupils equal, reactive. No scleral icterus. Mucous membranes are somewhat dry. NECK: No crepitus, no JVD. Trachea midline. PULMONARY: Normal respiratory effort. No wheezing. CARDIAC: S1, S2 present and regular. ABDOMEN: Soft, tender right upper quadrant and an epigastric without rebound, guarding or rigidity. Negative Polanco's. EXTREMITIES: No edema. VASCULAR: Cap refill less than 2 seconds. NEUROLOGICAL: Alert, oriented. LABORATORY AND RADIOGRAPHIC: As per chart and HPI. ASSESSMENT AND PLAN: 1. Abdominal pain with cholelithiasis, questionable choledocholithiasis, n.p.o., IV fluids, MRCP pe nding, pain control. 2. Transaminitis and hyperbilirubinemia, probably secondary to as above. 3. Diabetes mellitus. Nutrition and medication control. 4. Dyslipidemia. Nutrition and medication control. 5. Gastroesophageal reflux disease. PPI. Diet and lifestyle and optimization. 6. History of cerebrovascular accident with right-sided droop. Medical and cardiac optimization. Thank you very much for consulting me in this patient's care. Dictated By: KVNG ROMERO/JOSE L Conf#: [id number] DID#: [id number]
[2016-09-30] MEDS: ACCUCHECK XX SCH (02:00)
[2016-09-30 05:57] LABS: BASOPHIL # 0.1 10^3/ul (0.0-0.1); BASOPHILS % 0.6 % (0.0-2.0); EOSINOPHILS # 0.4 10^3/ul (0.0-0.5); EOSINOPHILS % 3.7 % (0.0-7.0); HEMATOCRIT 38.6 % (37.0-47.0); HEMOGLOBIN 12.9 g/dl (12.0-16.0); LYMPHOCYTES # 3.8 10^3/ul (0.8-2.9); LYMPHOCYTES % 39.3 % (15.0-51.0); MEAN CORPUSCULAR HEMOGLOBIN 28.6 pg (29.0-33.0); MEAN CORPUSCULAR HGB CONC 33.5 g/dl (32.0-37.0); MEAN CORPUSCULAR VOLUME 85.5 fl (82.0-101.0); MEAN PLATELET VOLUME 8.6 fl (7.4-10.4); MONOCYTE # 0.5 10^3/ul (0.3-0.9); MONOCYTES % 5.7 % (0.0-11.0); NEUTROPHIL # 4.9 10^3/ul (1.6-7.5); NEUTROPHILS % 50.7 % (39.0-77.0); PLATELET COUNT 252 10^3/UL (140-440); RED BLOOD COUNT 4.51 10^6/ul (4.20-5.40); RED CELL DISTRIBUTION WIDTH 14.1 % (11.5-14.5); UNCORRECTED WBC 9.6 10^3/ul (4.8-10.8); WHITE BLOOD COUNT 9.6 10^3/ul (4.8-10.8)
[2016-09-30 05:58] LABS: ALBUMIN 3.8 g/dl (3.3-4.9)
[2016-09-30 06:00] LABS: BILIRUBIN,INDIRECT 0.5 mg/dl (0-1.1); BILIRUBIN,TOTAL 0.5 mg/dl (0.2-1.3); CREATININE 0.62 mg/dl (0.44-1.00)
[2016-09-30 06:01] LABS: ALBUMIN/GLOBULIN RATIO 1.4; CALCIUM 9.3 mg/dl (8.4-10.2); TOTAL PROTEIN 6.5 g/dl (6.1-8.1)
[2016-09-30 06:20] LABS: CONDITION 1
[2016-09-30] MEDS: PANTOPRAZOLE 40 MG INJ IV SCH (06:31)
[2016-09-30 07:51] VITALS: BP 115/66; RESP 20
[2016-09-30] MEDS: INSULIN ASPART [NOVOLOG] 3 ML PEN SC SCH ×4 (08:15→21:00)
[2016-09-30] MEDS: FLUOXETINE 20 MG CAP PO SCH (08:31)
[2016-09-30] MEDS: metFORMIN 500 MG TAB PO SCH ×2 (08:31→19:00)
[2016-09-30] MEDS: CHOLECALCIFEROL 400 UNITS TAB PO SCH (08:31)
--- NOTE | 2016-09-30 10:39 | RADRPT ---
PROCEDURE: XR Chest. CLINICAL INDICATION: Surgical clearance. TECHNIQUE: Single frontal view of the chest was obtained COMPARISON: None FINDINGS: The soft tissues are normal. The bony elements are normal. The heart, left side aorta, cardiomedias tinal silhouette, pulmonary vasculature and hilar structures are normal. The lungs are clear. The co stophrenic angles are normal. IMPRESSION: 1. Normal chest x-ray. RPTAT:AAJJ Physician Alison Date Time Electronically viewed and signed by Physician Alison on 09/30/2016 10:39 JM/
--- NOTE | 2016-09-30 11:03 | CONS ---
Date/Time of Note Date/Time of Note DATE: 09/30/16 TIME: 11:01 Assessment/Plan Assessment/Plan Additional Assessment/Plan Assessment: * Cholelithiasis/?cholecystitis * Abnormal liver function tests/no evidence of choledocholithiasis * Fatty liver * Diabetes mellitus type 2 * Dyslipidemia * History of GERD * History of asthma Plan: * Repeat liver function tests tomorrow * Reassess potential benefits of ERCP * Surgical follow-up consider cholecystectomy during this hospitalization this patient is poorly compliant * Further recommendations depend on clinical course * Patient seen in collaboration with Dr. Arguello Consultation Date/Type/Reason Admit Date/Time Sep 28, 2016 at 19:42 Initial Consult Date 09/29/16 Type of Consultation: Gastroenterology Reason for Consultation Transaminitis 24 HR Interval Summary Free Text/Dictation Reports less abdominal pain Denies nausea and vomiting Possible ERCP today Exam/Review of Systems Vital Signs Vitals Vital Signs Date Time Temp Pulse Resp B/P Pulse Ox O2 Delivery O2 Flow Rate FiO2 09/30/16 07:51 98.8 87 20 115/66 98 09/28/16 20:44 Room Air Intake and Output 09/29/16 09/29/16 09/30/16 15:00 23:00 07:00 Intake Total 1200 ml 650 ml Output Total 1400 ml 1700 ml Balance -200 ml -1050 ml Exam Constitutional: alert, obese, oriented, well developed, No distress Psych: nl mood/affect, no complaints Head: atraumatic, normocephalic Eyes: EOMI, PERRL, nl conjunctiva, nl lids, nl sclera ENMT: nl external ears & nose, nl lips & teeth, nl nasal mucosa & septum Neck: non-tender, supple Respiratory: clear to auscultation, normal air movement Cardiovascular: nl pulses, regular rate and rhythm Gastrointestinal: bowel sounds, distended, hepatomegaly, nl liver, spleen, soft , tender (Mild right upper quadrant tenderness), No ascites, No mass, No rebound or guarding, No splenomegaly Musculoskeletal: nl extremities to inspection Extremities: normal pulses Skin: nl turgor, No rash or lesions Lymph: nl lymph nodes Results Result Diagram: 09/30/16 0505 09/30/16 0505 Results 24 hrs Laboratory Tests Test 09/29/16 12:12 09/29/16 17:13 09/29/16 21:09 09/30/16 05:05 Bedside Glucose 108 111 107 Alanine Aminotransferase (ALT/SGPT) 467 H Albumin 3.8 Albumin/Globulin Ratio 1.40 Alkaline Phosphatase 186 H Anion Gap 15 Aspartate Amino Transf (AST/SGOT) 200 H Basophils # 0.1 Basophils % 0.6 Blood Morphology Comment Blood Urea Nitrogen 10 Calcium Level 9.3 Carbon Dioxide Level 29 Chloride Level 102 Creatinine 0.62 Direct Bilirubin 0.00 # Eosinophils # 0.4 Eosinophils % 3.7 Globulin 2.70 Glucose Level 105 Hematocrit 38.6 Hemoglobin 12.9 Indirect Bilirubin 0.5 Lymphocytes # 3.8 H Lymphocytes % 39.3 Mean Corpuscular Hemoglobin 28.6 L Mean Corpuscular Hemoglobin Concent 33.5 Mean Corpuscular Volume 85.5 Mean Platelet Volume 8.6 Monocytes # 0.5 Monocytes % 5.7 Neutrophils # 4.9 Neutrophils % 50.7 Nucleated Red Blood Cells # 0.0 Nucleated Red Blood Cells % 0.0 Platelet Count 252 Potassium Level 4.0 Red Blood Count 4.51 Red Cell Distribution Width 14.1 Sodium Level 142 Total Bilirubin 0.5 Total Protein 6.5 White Blood Count 9.6 Test 09/30/16 07:47 Bedside Glucose 135 Medications Medications Current Medications Ondansetron HCl (Zofran Inj) 4 mg Q6H PRN IV NAUSEA AND/OR VOMITING; Start 08/02 at 22:00 Pantoprazole (Protonix Iv) 40 mg DAILY@06 IV Last administered on 09/30/16 06: 31; Admin Dose 40 MG; Start 09/29/16 at 06:00 Morphine Sulfate (morphine) 2 mg Q4H PRN IV pain; Start 09/28/16 at 22:00 Cholecalciferol (Vitamin D) 400 units DAILY PO Last administered on 09/30/16 08:31; Admin Dose 400 UNITS; Start 09/29/16 at 09:00 Fluoxetine HCl (Prozac) 20 mg DAILY PO Last administered on 09/30/16 08:31; Admin Dose 20 MG; Start 09/29/16 at 09:00 Montelukast Sodium (Singulair) 10 mg QHS PO Last administered on 09/29/16 21: 11; Admin Dose 10 MG; Start 09/29/16 at 21:00 Quetiapine Fumarate (Seroquel) 50 mg HS PO Last administered on 09/29/16 21:11 ; Admin Dose 50 MG; Start 09/29/16 at 21:00 Trazodone HCl (Desyrel) 50 mg QHS PO Last administered on 09/29/16 21:11; Admin Dose 50 MG; Start 09/29/16 at 21:00 Diagnostic Test (Pha) (Accucheck) 1 ea 02 XX Last administered on 09/29/16 02: 28; Admin Dose 1 EA; Start 09/29/16 at 02:00 Atorvastatin Calcium (Lipitor) 20 mg DAILY@21 PO Last administered on 21:11; Admin Dose 20 MG; Start 09/29/16 at 21:00 Miscellaneous Information 1 ea NOTE XX ; Start 09/29/16 at 15:00 Glucose (Glutose) 15 gm Q15M PRN PO DECREASED GLUCOSE; Start 09/29/16 at 15:00 Glucose (Glutose) 22.5 gm Q15M PRN PO DECREASED GLUCOSE; Start 09/29/16 at 15: 00 Dextrose (D50w Syringe) 25 ml Q15M PRN IV DECREASED GLUCOSE; Start 09/29/16 at 15:00 Dextrose (D50w Syringe) 50 ml Q15M PRN IV DECREASED GLUCOSE; Start 09/29/16 at 15:00 Glucagon (Glucagen) 1 mg Q15M PRN IM DECREASED GLUCOSE; Start 09/29/16 at 15:00 Glucose (Glutose) 15 gm Q15M PRN BUCCAL DECREASED GLUCOSE; Start 09/29/16 at 15 :00 MOHINDER SHAY Sep 30, 2016 11:03
--- NOTE | 2016-09-30 14:20 | PN ---
Date/Time of Note Date/Time of Note DATE: 09/30/16 TIME: 14:18 Assessment/Plan VTE Prophylaxis VTE Prophylaxis Intervention: SCD's Lines/Catheters IV [facility] Saline Lock Urinary Cath still in place: No Assessment/Plan Chief Complaint/Hosp Course 1. Acute abd pain likely 2/2 biliary colic from cholelithiasis r/o choledocholithiasis -MRCP shows GB stones but no stones in the CBD yet LFT's continue to be elevated -Plan is to monitor LFT's or another day and then consider ERCP and then Lap Nai -GI and Surgery consults appreciated 2. Hyperbilirubinemia with Transaminitis 2/2 above versus Fatty liver -Hep panel is negative 3. Chronic asthma: stable w/o exacerbation 4. DM type 2 -cont Metformin PPx- SCD's Problems: Subjective 24 Hr Interval Summary Constitutional: no complaints Exam/Review of Systems Vital Signs Vitals Vital Signs Date Time Temp Pulse Resp B/P Pulse Ox O2 Delivery O2 Flow Rate FiO2 09/30/16 07:51 98.8 87 20 115/66 98 09/28/16 20:44 Room Air Intake and Output 09/29/16 09/29/16 09/30/16 15:00 23:00 07:00 Intake Total 1200 ml 650 ml Output Total 1400 ml 1700 ml Balance -200 ml -1050 ml Exam Constitutional: alert, oriented Respiratory: clear to auscultation Cardiovascular: regular rate and rhythm Gastrointestinal: soft, tender, No distended Musculoskeletal: nl extremities to inspection Results Result Diagram: 09/30/16 0505 09/30/16 0505 Results 24 hrs Laboratory Tests Test 09/29/16 17:13 09/29/16 21:09 09/30/16 05:05 09/30/16 07:47 Bedside Glucose 111 107 135 Alanine Aminotransferase (ALT/SGPT) 467 H Albumin 3.8 Albumin/Globulin Ratio 1.40 Alkaline Phosphatase 186 H Anion Gap 15 Aspartate Amino Transf (AST/SGOT) 200 H Basophils # 0.1 Basophils % 0.6 Blood Morphology Comment Blood Urea Nitrogen 10 Calcium Level 9.3 Carbon Dioxide Level 29 Chloride Level 102 Creatinine 0.62 Direct Bilirubin 0.00 # Eosinophils # 0.4 Eosinophils % 3.7 Globulin 2.70 Glucose Level 105 Hematocrit 38.6 Hemoglobin 12.9 Indirect Bilirubin 0.5 Lymphocytes # 3.8 H Lymphocytes % 39.3 Mean Corpuscular Hemoglobin 28.6 L Mean Corpuscular Hemoglobin Concent 33.5 Mean Corpuscular Volume 85.5 Mean Platelet Volume 8.6 Monocytes # 0.5 Monocytes % 5.7 Neutrophils # 4.9 Neutrophils % 50.7 Nucleated Red Blood Cells # 0.0 Nucleated Red Blood Cells % 0.0 Platelet Count 252 Potassium Level 4.0 Red Blood Count 4.51 Red Cell Distribution Width 14.1 Sodium Level 142 Total Bilirubin 0.5 Total Protein 6.5 White Blood Count 9.6 Test 09/30/16 11:42 Bedside Glucose 106 Medications Medications Current Medications Ondansetron HCl (Zofran Inj) 4 mg Q6H PRN IV NAUSEA AND/OR VOMITING; Start 08/02 at 22:00 Pantoprazole (Protonix Iv) 40 mg DAILY@06 IV Last administered on 09/30/16 06: 31; Admin Dose 40 MG; Start 09/29/16 at 06:00 Morphine Sulfate (morphine) 2 mg Q4H PRN IV pain; Start 09/28/16 at 22:00 Cholecalciferol (Vitamin D) 400 units DAILY PO Last administered on 09/30/16 08:31; Admin Dose 400 UNITS; Start 09/29/16 at 09:00 Fluoxetine HCl (Prozac) 20 mg DAILY PO Last administered on 09/30/16 08:31; Admin Dose 20 MG; Start 09/29/16 at 09:00 Montelukast Sodium (Singulair) 10 mg QHS PO Last administered on 09/29/16 21: 11; Admin Dose 10 MG; Start 09/29/16 at 21:00 Quetiapine Fumarate (Seroquel) 50 mg HS PO Last administered on 09/29/16 21:11 ; Admin Dose 50 MG; Start 09/29/16 at 21:00 Trazodone HCl (Desyrel) 50 mg QHS PO Last administered on 09/29/16 21:11; Admin Dose 50 MG; Start 09/29/16 at 21:00 Diagnostic Test (Pha) (Accucheck) 1 ea 02 XX Last administered on 09/29/16 02: 28; Admin Dose 1 EA; Start 09/29/16 at 02:00 Atorvastatin Calcium (Lipitor) 20 mg DAILY@21 PO Last administered on t 21:11; Admin Dose 20 MG; Start 09/29/16 at 21:00 Miscellaneous Information 1 ea NOTE XX ; Start 09/29/16 at 15:00 Glucose (Glutose) 15 gm Q15M PRN PO DECREASED GLUCOSE; Start 09/29/16 at 15:00 Glucose (Glutose) 22.5 gm Q15M PRN PO DECREASED GLUCOSE; Start 09/29/16 at 15: 00 Dextrose (D50w Syringe) 25 ml Q15M PRN IV DECREASED GLUCOSE; Start 09/29/16 at 15:00 Dextrose (D50w Syringe) 50 ml Q15M PRN IV DECREASED GLUCOSE; Start 09/29/16 at 15:00 Glucagon (Glucagen) 1 mg Q15M PRN IM DECREASED GLUCOSE; Start 09/29/16 at 15:00 Glucose (Glutose) 15 gm Q15M PRN BUCCAL DECREASED GLUCOSE; Start 09/29/16 at 15 :00 BRYAN MACHUCA Sep 30, 2016 14:20
[2016-09-30 19:40] VITALS: BP 117/68; RESP 20
--- NOTE | 2016-09-30 20:51 | PN ---
Date/Time of Note Date/Time of Note DATE: 09/30/16 TIME: 20:49 Assessment/Plan Lines/Catheters [facility] Saline Lock [facility] in Place [facility] No Assessment/Plan Chief Complaint/Hosp Course 1. Abdominal pain with cholelithiasis and ? mild cholecystitis. MRCP noted. -Nothing by mouth -IV fluids -IV abx -Pain control -?Lap jordana 2. Transaminitis and hyper bilirubinemia. ? passed stone. -As above 3. Diabetes mellitus -Nutrition and medication control 4. Dyslipidemia -Nutrition and medication control 5. GERD -PPI -Diet and lifestyle optimization 6. History of CVA with right-sided droop -Medical and cardiac optimization Thank you, Problems: Subjective 24 Hr Interval Summary Minimal pain. No fevers or chills. No nausea vomiting. No chest pain or shortness of breath. No visual or neurologic changes. No dysuria. Bowel function. MRCP noted. Exam/Review of Systems Vital Signs Vitals Vital Signs Date Time Temp Pulse Resp B/P Pulse Ox O2 Delivery O2 Flow Rate FiO2 09/30/16 19:40 98.8 76 20 117/68 95 09/28/16 20:44 Room Air Intake and Output 09/29/16 09/29/16 09/30/16 15:00 23:00 07:00 Intake Total 1200 ml 650 ml Output Total 1400 ml 1700 ml Balance -200 ml -1050 ml Exam Free Text/Dictation Constitutional: alert, oriented, No distress Psych: anxiety Head: atraumatic, normocephalic, No hematomas Eyes: EOMI, PERRL, nl conjunctiva, nl sclera, No icteric ENMT: mucosa pink and moist, nl external ears & nose, nl lips & teeth Neck: non-tender, supple, No jvd Respiratory: normal air movement, No congested cough, No labored breathing Cardiovascular: regular rate and rhythm, No edema Gastrointestinal: soft, tender (minimal without [place]), No distended, No rebound or guarding Musculoskeletal: nl extremities to inspection, No joint tenderness Extremities: normal pulses, No calf tenderness, No cyanosis Neurological: nl strength, No confused Skin: nl turgor, No diaphoresis, No rash or lesions Lymph: nl lymph nodes Results Result Diagram: 09/30/16 0505 09/30/16 0505 KVNG OLIVA MD Sep 30, 2016 20:51
[2016-09-30] MEDS: ATORVASTATIN 20 MG TAB PO SCH (21:17)
[2016-09-30] MEDS: MONTELUKAST 10 MG TAB PO SCH (21:17)
[2016-09-30] MEDS: traZODone 50 MG TAB PO SCH (21:18)
[2016-09-30] MEDS: QUETIAPINE 25 MG TAB PO SCH (21:19)
[2016-10-01] VITALS (36 sets, daily range): BP systolic 85–160; BP diastolic 49–96; PULSE 70–106; RESP 12–46
[2016-10-01] MEDS: ACCUCHECK XX SCH (02:00)
[2016-10-01] MEDS: PANTOPRAZOLE 40 MG INJ IV SCH (05:55)
[2016-10-01 06:09] LABS: BASOPHIL # 0.1 10^3/ul (0.0-0.1); BASOPHILS % 0.5 % (0.0-2.0); EOSINOPHILS # 0.4 10^3/ul (0.0-0.5); HEMATOCRIT 37.7 % (37.0-47.0); HEMOGLOBIN 12.6 g/dl (12.0-16.0); LYMPHOCYTES # 3.7 10^3/ul (0.8-2.9); LYMPHOCYTES % 36.8 % (15.0-51.0); MEAN CORPUSCULAR HEMOGLOBIN 28.6 pg (29.0-33.0); MEAN CORPUSCULAR HGB CONC 33.5 g/dl (32.0-37.0); MEAN CORPUSCULAR VOLUME 85.5 fl (82.0-101.0); MEAN PLATELET VOLUME 8.6 fl (7.4-10.4); MONOCYTE # 0.7 10^3/ul (0.3-0.9); MONOCYTES % 6.9 % (0.0-11.0); NEUTROPHIL # 5.3 10^3/ul (1.6-7.5); NEUTROPHILS % 51.8 % (39.0-77.0); PLATELET COUNT 244 10^3/UL (140-440); RED BLOOD COUNT 4.41 10^6/ul (4.20-5.40); RED CELL DISTRIBUTION WIDTH 14.2 % (11.5-14.5); UNCORRECTED WBC 10.1 10^3/ul (4.8-10.8); WHITE BLOOD COUNT 10.1 10^3/ul (4.8-10.8)
[2016-10-01] MEDS: DEXTROSE 5%-0.45% NACL 1,000 ML IV SCH ×3 (06:11→22:22)
[2016-10-01 06:12] LABS: ALBUMIN 3.6 g/dl (3.3-4.9)
[2016-10-01 06:13] LABS: INR 0.95; PARTIAL THROMBOPLASTIN TIME 27.8 Sec (25.0-35.0); POTASSIUM 3.7 mmol/L (3.5-5.1); PROTIME 12.7 Sec (12.2-14.2)
[2016-10-01 06:15] LABS: ALBUMIN/GLOBULIN RATIO 1.33; BILIRUBIN,INDIRECT 0.6 mg/dl (0-1.1); BILIRUBIN,TOTAL 0.6 mg/dl (0.2-1.3); CREATININE 0.64 mg/dl (0.44-1.00); TOTAL PROTEIN 6.3 g/dl (6.1-8.1)
[2016-10-01 06:26] LABS: CONDITION 1
[2016-10-01] MEDS ORDERED: CEFAZOLIN 1 GM INJ ONE (07:00)
[2016-10-01] MEDS: INSULIN ASPART [NOVOLOG] 3 ML PEN SC SCH ×4 (08:15→21:00)
[2016-10-01] MEDS: FLUOXETINE 20 MG CAP PO SCH (08:48)
[2016-10-01] MEDS: metFORMIN 500 MG TAB PO SCH ×2 (08:48→18:00)
[2016-10-01] MEDS: CHOLECALCIFEROL 400 UNITS TAB PO SCH (08:48)
[2016-10-01] MEDS ORDERED: BUPIVACAINE 0.25%/EPI (SDV) 30 ML INJ ONE (13:19)
[2016-10-01] MEDS ORDERED: LIDOCAINE 1% (MPF) 30 ML INJ ONE (13:19)
[2016-10-01] MEDS ORDERED: metroNIDAZOLE 500 MG/NS (PMX) 100 ML IVPB ONE (13:43)
[2016-10-01] MEDS ORDERED: IOHEXOL 300MG/ML 30 ML BTL ONE ×2 (13:43→17:07)
[2016-10-01] MEDS ORDERED: MIDAZOLAM 1 MG/ML 2 ML INJ ONE (13:44)
[2016-10-01] MEDS ORDERED: MEPERIDINE 25 MG INJ IV PRN (14:30)
[2016-10-01] MEDS ORDERED: HYDROmorphONE (0.2 MG/ML) 10ML SYG IV PRN ×3 (14:30→18:30)
[2016-10-01] MEDS ORDERED: FENTAnyl 50 MCG/ML VIAL IV PRN ×2 (14:30→18:30)
[2016-10-01] MEDS ORDERED: DIPHENHYDRAMINE 50 MG INJ IV PRN (14:30)
[2016-10-01] MEDS ORDERED: ONDANSETRON 4 MG INJ IV PRN ×2 (14:30→18:30)
[2016-10-01] MEDS ORDERED: ROCURONIUM 50 MG INJ ONE (15:19)
[2016-10-01] MEDS ORDERED: ONDANSETRON 4 MG INJ ONE ×2 (15:19→18:24)
[2016-10-01] MEDS ORDERED: GLYCOPYRROLATE 1 MG INJ ONE (15:19)
[2016-10-01] MEDS ORDERED: LIDOCAINE 2% (SDV) 5 ML INJ ONE ×2 (15:19→17:54)
[2016-10-01] MEDS ORDERED: NEOSTIGMINE 3 MG/3 ML SYRINGE ONE (15:19)
[2016-10-01] MEDS ORDERED: PROPOFOL 20 ML ONE ×2 (15:19→17:54)
--- NOTE | 2016-10-01 15:33 | PN ---
Date/Time of Note Date/Time of Note DATE: 10/01/16 TIME: 15:31 Assessment/Plan VTE Prophylaxis VTE Prophylaxis Intervention: SCD's Lines/Catheters IV C[facility] Type (from [facility] Saline Lock Urinary Cath still in place: No Assessment/Plan Chief Complaint/Hosp Course 1. Acute abd pain likely 2/2 biliary colic from cholelithiasis r/o choledocholithiasis -MRCP shows GB stones but no stones in the CBD yet LFT's continue to be elevated -LFT's trending down, no plans for ERCP but will have lap Nai today -GI and Surgery consults appreciated 2. Hyperbilirubinemia with Transaminitis 2/2 above versus Fatty liver-Improved -Hep panel is negative 3. Chronic asthma: stable w/o exacerbation 4. DM type 2 -cont Metformin PPx- SCD's Problems: Subjective 24 Hr Interval Summary Constitutional: no complaints Exam/Review of Systems Vital Signs Vitals Vital Signs Date Time Temp Pulse Resp B/P Pulse Ox O2 Delivery O2 Flow Rate FiO2 10/01/16 07:22 98.2 72 16 116/77 99 09/28/16 20:44 Room Air Intake and Output 09/30/16 09/30/16 10/01/16 15:00 23:00 07:00 Intake Total 480 ml 1230 ml Output Total 1100 ml Balance -620 ml 1230 ml Exam Constitutional: alert, oriented Respiratory: clear to auscultation Cardiovascular: regular rate and rhythm Gastrointestinal: soft, No distended Musculoskeletal: nl extremities to inspection Results Result Diagram: 10/01/16 0510 10/01/16 0510 Results 24 hrs Laboratory Tests Test 09/30/16 16:47 09/30/16 18:59 09/30/16 21:16 10/01/16 05:10 Bedside Glucose 87 141 93 Activated Partial Thromboplast Time 27.8 Alanine Aminotransferase (ALT/SGPT) 330 H Albumin 3.6 Albumin/Globulin Ratio 1.33 Alkaline Phosphatase 154 H Anion Gap 14 Aspartate Amino Transf (AST/SGOT) 107 H Basophils # 0.1 Basophils % 0.5 Blood Morphology Comment Blood Urea Nitrogen 10 Calcium Level 9.0 Carbon Dioxide Level 28 Chloride Level 104 Creatinine 0.64 Direct Bilirubin 0.00 Eosinophils # 0.4 Eosinophils % 4.0 Globulin 2.70 Glucose Level 132 Hematocrit 37.7 Hemoglobin 12.6 INR International Normalized Ratio 0.95 Indirect Bilirubin 0.6 Lipase 48 Lymphocytes # 3.7 H Lymphocytes % 36.8 Mean Corpuscular Hemoglobin 28.6 L Mean Corpuscular Hemoglobin Concent 33.5 Mean Corpuscular Volume 85.5 Mean Platelet Volume 8.6 Monocytes # 0.7 Monocytes % 6.9 Neutrophils # 5.3 Neutrophils % 51.8 Nucleated Red Blood Cells # 0.0 Nucleated Red Blood Cells % 0.0 Platelet Count 244 Potassium Level 3.7 Prothrombin Time 12.7 Prothrombin Time Ratio 1.0 Red Blood Count 4.41 Red Cell Distribution Width 14.2 Sodium Level 142 Total Bilirubin 0.6 Total Protein 6.3 White Blood Count 10.1 Test 10/01/16 07:43 10/01/16 11:39 Bedside Glucose 129 126 Medications Medications Current Medications Ondansetron HCl (Zofran Inj) 4 mg Q6H PRN IV NAUSEA AND/OR VOMITING; Start 08/02 at 22:00 Pantoprazole (Protonix Iv) 40 mg DAILY@06 IV Last administered on 10/01/16 05: 55; Admin Dose 40 MG; Start 09/29/16 at 06:00 Morphine Sulfate (morphine) 2 mg Q4H PRN IV pain; Start 09/28/16 at 22:00 Cholecalciferol (Vitamin D) 400 units DAILY PO Last administered on 10/01/16 08:48; Admin Dose 400 UNITS; Start 09/29/16 at 09:00 Fluoxetine HCl (Prozac) 20 mg DAILY PO Last administered on 10/01/16 08:48; Admin Dose 20 MG; Start 09/29/16 at 09:00 Montelukast Sodium (Singulair) 10 mg QHS PO Last administered on 09/30/16 21: 17; Admin Dose 10 MG; Start 09/29/16 at 21:00 Quetiapine Fumarate (Seroquel) 50 mg HS PO Last administered on 09/30/16 21:19 ; Admin Dose 50 MG; Start 09/29/16 at 21:00 Trazodone HCl (Desyrel) 50 mg QHS PO Last administered on 09/30/16 21:18; Admin Dose 50 MG; Start 09/29/16 at 21:00 Diagnostic Test (Pha) (Accucheck) 1 ea 02 XX Last administered on 09/29/16 02: 28; Admin Dose 1 EA; Start 09/29/16 at 02:00 Atorvastatin Calcium (Lipitor) 20 mg DAILY@21 PO Last administered on 21:17; Admin Dose 20 MG; Start 09/29/16 at 21:00 Miscellaneous Information 1 ea NOTE XX ; Start 09/29/16 at 15:00 Glucose (Glutose) 15 gm Q15M PRN PO DECREASED GLUCOSE; Start 09/29/16 at 15:00 Glucose (Glutose) 22.5 gm Q15M PRN PO DECREASED GLUCOSE; Start 09/29/16 at 15: 00 Dextrose (D50w Syringe) 25 ml Q15M PRN IV DECREASED GLUCOSE; Start 09/29/16 at 15:00 Dextrose (D50w Syringe) 50 ml Q15M PRN IV DECREASED GLUCOSE; Start 09/29/16 at 15:00 Glucagon (Glucagen) 1 mg Q15M PRN IM DECREASED GLUCOSE; Start 09/29/16 at 15:00 Glucose 15 gm 15 gm Q15M PRN BUCCAL DECREASED GLUCOSE; Start 09/29/16 at 15:00 Dextrose/Sodium Chloride (D5-1/2ns) 1,000 ml @ 75 mls/hr [id number] IV Last administered on 10/01/16 06:11; Admin Dose 75 MLS/HR; Start 10/01/16 at 12:00 BRAYN MACHUCA Oct 01, 2016 15:33
--- NOTE | 2016-10-01 15:36 | PN ---
Date/Time of Note Date/Time of Note DATE: 10/01/16 TIME: 15:34 Assessment/Plan Lines/Catheters IV Catheter Type (from [facility]): Saline Lock Sahu in Place (from [facility]): No Assessment/Plan Chief Complaint/Hosp Course 1. Abdominal pain with cholelithiasis and ? mild cholecystitis. MRCP noted. No ERCP per GI -Nothing by mouth -IV fluids -IV abx -Pain control -Lap jordana 2. Transaminitis and hyper bilirubinemia. ? passed stone vs persistent Choledocholithiasis -As above 3. Diabetes mellitus -Nutrition and medication control 4. Dyslipidemia -Nutrition and medication control 5. GERD -PPI -Diet and lifestyle optimization 6. History of CVA with right-sided droop -Medical and cardiac optimization Thank you, Problems: Subjective 24 Hr Interval Summary Minimal pain. No fevers or chills. No nausea vomiting. No chest pain or shortness of breath. No visual or neurologic changes. No dysuria. Bowel function. No ERCP per GI. Exam/Review of Systems Vital Signs Vitals Vital Signs Date Time Temp Pulse Resp B/P Pulse Ox O2 Delivery O2 Flow Rate FiO2 10/01/16 15:31 98.5 10/01/16 07:22 72 16 116/77 99 09/28/16 20:44 Room Air Intake and Output 09/30/16 09/30/16 10/01/16 15:00 23:00 07:00 Intake Total 480 ml 1230 ml Output Total 1100 ml Balance -620 ml 1230 ml Exam Free Text/Dictation Constitutional: alert, oriented, No distress Psych: Anxiety, min Head: atraumatic, normocephalic, No hematomas Eyes: EOMI, PERRL, nl conjunctiva, nl sclera, No icteric ENMT: mucosa pink and moist, nl external ears & nose, nl lips & teeth Neck: non-tender, supple, No jvd Respiratory: normal air movement, No congested cough, No labored breathing Cardiovascular: regular rate and rhythm, No edema Gastrointestinal: soft, tender (minimal without [place]), No distended, No rebound or guarding Musculoskeletal: nl extremities to inspection, No joint tenderness Extremities: normal pulses, No calf tenderness, No cyanosis Neurological: nl strength, No confused Skin: nl turgor, No diaphoresis, No rash or lesions Lymph: nl lymph nodes Results Result Diagram: 10/01/16 0510 10/01/16 0510 KVNG OLIVA MD Oct 01, 2016 15:36
--- NOTE | 2016-10-01 15:45 | OPR ---
Date/Time of Note Date/Time of Note DATE: 10/01/16 TIME: 15:37 Operative Report Procedure Date: Oct 01, 2016 Procedure Description Preoperative Diagnosis: Symptomatic cholelithiasis Possible mild cholecystitis Transaminitis Postoperative Diagnosis: Symptomatic cholelithiasis Transaminitis Choledocholithiasis Mind cholecystitis Abnormal liver color Operation(s) Performed: 1. 3 port laparoscopic cholecystectomy 2. Laparoscopic liver wedge resection biopsy 3. Laparoscopic intraoperative cholangiogram 4. Local anesthetic [place], [id number] 5. Laparoscopic guided bilateral transversus abdominis plane block Surgeon: KVNG OLIVA MD Anesthesia: general, local, & regional Anesthesiologist: Ty Cueva MD Estimated Blood Loss: 20 ml's Specimens: Liver Gallbladder Tubes/Drains: 19 Armenian Derrick Complications: None Pt Condition Post Procedure: stable Disposition: PACU Indications: 61-year-old female with gallstones and abdominal pain here for cholecystectomy. As per consult note. Risks include but are not limited to bleeding, infection, abscess, seroma, damage to intestines, damage to the liver, damage to biliary tree, hernia formation, chronic pain, biloma, need for reoperations or further surgeries, ME , stroke, PE, DVT, pneumonia, organ failures, or even . Procedure Description: Patient was brought and placed supine on the operating table SCDs were placed, preoperative antibiotics were administered, all pressure points were well-padded , and after induction of anesthesia patient was prepped and draped in usual sterile fashion and timeout was performed. Incision was made in the supraumbilical region, Veress was safely inserted, and after a negative SIP test , abdomen was insufflated to 15mmHg. Veress was removed and 5mm port was safely inserted. Laparoscopy was performed with a 5 mm 30 scope. No injuries were identified. The liver looks somewhat abnormal color. Gallbladder is with minimal inflammatory changes. 12 mm port is placed in subxiphoid under direct visualization followed by another 5 mm port in the right upper quadrant. All port sites were injected with quarter percent Marcaine with epi and 1% lidocaine prior to any incisions. Bilateral transversus abdominis plane block was performed under laparoscopic visualization to aid with pain control intra-and postoperatively. Patient was placed in reverse Trendelenburg and right side up on gallbladder was retracted superolaterally. Using electrocautery and blunt dissection I was able to identify the cystic artery and cystic duct. The duct was dilated but tapered into the gallbladder. Full critical angle view was identified. Both structures were clipped twice proximally and once distally and transected at the end of the operation. Since the duct was dilated, Endoloop was placed as well. Prior to transection of the cystic duct, cystotomy was created cholangiogram catheter inserted and cholangiography performed. Imaging identified contrast filling the hepatic ducts and the common bile duct but no small bowel. There was a meniscus sign in the distal common bile duct. Flushing did not improve this. Decision was made to proceed with surgery and eventually have patient undergo ERCP. The gallbladder was taken off the liver with electrocautery. Hemostasis was obtained. Gallbladder was placed in an Endo Catch bag and removed through the subxiphoid port site. There was complete hemostasis. Due to the abnormality of the liver decision was made to perform liver wedge resection which was done with electrocautery and scissor with complete hemostasis right after. The specimen was sent to pathology for further evaluation. 19F derrick drain was placed through lateral incision to drain the liver and gb sites. 12 mm made port site fascia was closed with Endo Close of an 0 Vicryl in a [id number] manner. Ports and CO2 were removed under direct visualization. Next complete hemostasis. Wounds were thoroughly irrigated skin was closed with 4-0 Monocryl in subcuticular fashion. Dermabond was applied. Patient was extubated and transferred to recovery room in stable condition and all counts were correct and the end of the operation 2.operation 2. KVNG OLIVA MD Oct 01, 2016 15:45
--- NOTE | 2016-10-01 16:33 | RADRPT ---
PROCEDURE: XR Abdomen. 10/01/2016. CLINICAL INDICATION: Right upper quadrant abdomen pain. Intraoperative cholangiogram. TECHNIQUE: Two views. AP supine at 1444 hours and at 1446 hours. COMPARISON: MRCP dated 09/29/2016. FINDINGS: A nasogastric tube is present with the tip in the stomach. Surgical instruments are present overlying the right upper quadrant of the abdomen. Contrast was injected into the cystic duct and opacifies the intrahepatic bile ducts, common hepatic duct, and common bile duct. There is a possible small 0.3 cm calculus in the distal common bile duct. Contrast enters the duode num. There are mild degenerative changes of the spine. IMPRESSION: 1. Possible small 0.3 cm calculus in the distal common bile duct. 2. No evidence of obstruction. RPTAT: QQ .Dragan Brownlee MD, Date Time Electronically viewed and signed by .Dragan Brownlee MD, on 10/01/2016 16:33 .R/
--- NOTE | 2016-10-01 17:32 | HPN ---
Date/Time of Note Date/Time of Note DATE: 10/01/16 TIME: 17:30 Interval H&P Admission Note Patient s/p lap jordana with IOC which showed CBD stone w/obstruction Urgent ERCP with stone removal recommended due to high risk of cholangitis Family aware R/B/A and agreeable NORA PAYTON MD Oct 01, 2016 17:32
[2016-10-01] MEDS ORDERED: SUCCINYLCHOLINE CHLORIDE 100 MG/5 ML SYG IV ONE (17:54)
[2016-10-01] MEDS ORDERED: EPHEDrine SULFATE 50 MG/5 ML SYG ONE ×2 (18:08→18:13)
[2016-10-01] MEDS ORDERED: INDOMETHACIN 50 MG PO ONE (18:18)
[2016-10-01] MEDS ORDERED: METOCLOPRAMIDE 10 MG INJ ONE (18:24)
--- NOTE | 2016-10-01 19:09 | RADRPT ---
PROCEDURE: Fluoroscopic spot views of the right upper quadrant for an ERCP for surgical guidance CLINICAL INDICATION: Abdominal pain TECHNIQUE: 10 fluoroscopic spot views of the right upper quadrant for an ERCP. Images were submitt ed to the radiology department for interpretation. COMPARISON: None FINDINGS: Endoscope is seen. A wire and catheter is seen in the biliary system. The common bile duct and sowmya n intrahepatic ducts are dilated. A balloon sweep is seen. Cholecystectomy clips are identified. The images were reviewed by the attending physician at the time of the procedure. Fluoroscopy time was 1.27 minutes. IMPRESSION: Intraoperative images were obtained of the right upper quadrant for an ERCP for surgical guidance. P lease refer to the surgeon's operative notes for further details. RPTAT: HPNM Physician Adalberto Date Time Electronically viewed and signed by Physician Adalberto on 10/01/2016 19:09 /
[2016-10-01] MEDS: traZODone 50 MG TAB PO SCH (22:20)
[2016-10-01] MEDS: QUETIAPINE 25 MG TAB PO SCH (22:20)
[2016-10-01] MEDS: ATORVASTATIN 20 MG TAB PO SCH (22:23)
[2016-10-01] MEDS: MONTELUKAST 10 MG TAB PO SCH (22:24)
[2016-10-02] MEDS: DEXTROSE 5%-0.45% NACL 1,000 ML IV SCH (01:20)
[2016-10-02] MEDS: ACCUCHECK XX SCH (01:50)
[2016-10-02] MEDS: morphine 2 MG INJ IV PRN ×5 (01:56→21:03)
[2016-10-02] MEDS: PANTOPRAZOLE 40 MG INJ IV SCH (05:28)
[2016-10-02 06:24] LABS: ALBUMIN 3.5 g/dl (3.3-4.9)
[2016-10-02 06:25] LABS: POTASSIUM 3.9 mmol/L (3.5-5.1)
[2016-10-02 06:27] LABS: ALBUMIN/GLOBULIN RATIO 1.29; BASOPHIL # 0.1 10^3/ul (0.0-0.1); BASOPHILS % 0.4 % (0.0-2.0); BILIRUBIN,INDIRECT 0.5 mg/dl (0-1.1); BILIRUBIN,TOTAL 0.5 mg/dl (0.2-1.3); CREATININE 0.64 mg/dl (0.44-1.00); EOSINOPHILS # 0.1 10^3/ul (0.0-0.5); EOSINOPHILS % 0.8 % (0.0-7.0); HEMATOCRIT 34.3 % (37.0-47.0); HEMOGLOBIN 11.6 g/dl (12.0-16.0); LYMPHOCYTES # 2.8 10^3/ul (0.8-2.9); LYMPHOCYTES % 21.1 % (15.0-51.0); MEAN CORPUSCULAR HEMOGLOBIN 28.9 pg (29.0-33.0); MEAN CORPUSCULAR VOLUME 85.2 fl (82.0-101.0); MEAN PLATELET VOLUME 8.6 fl (7.4-10.4); MONOCYTE # 0.8 10^3/ul (0.3-0.9); MONOCYTES % 6.1 % (0.0-11.0); NEUTROPHIL # 9.3 10^3/ul (1.6-7.5); NEUTROPHILS % 71.6 % (39.0-77.0); PLATELET COUNT 228 10^3/UL (140-440); RED BLOOD COUNT 4.03 10^6/ul (4.20-5.40); RED CELL DISTRIBUTION WIDTH 13.8 % (11.5-14.5); TOTAL PROTEIN 6.2 g/dl (6.1-8.1)
[2016-10-02 06:28] LABS: CALCIUM 8.6 mg/dl (8.4-10.2)
[2016-10-02 06:30] LABS: CONDITION 1
[2016-10-02 08:07] VITALS: BP 133/67; RESP 18
[2016-10-02] MEDS: INSULIN ASPART [NOVOLOG] 3 ML PEN SC SCH (08:15)
[2016-10-02] MEDS: FLUOXETINE 20 MG CAP PO SCH (08:47)
[2016-10-02] MEDS: metFORMIN 500 MG TAB PO SCH ×2 (08:47→18:22)
[2016-10-02] MEDS: CHOLECALCIFEROL 400 UNITS TAB PO SCH (09:34)
--- NOTE | 2016-10-02 10:09 | CONS ---
Date/Time of Note Date/Time of Note DATE: 10/02/16 TIME: 10:04 Assessment/Plan Assessment/Plan Additional Assessment/Plan Assessment: * Cholelithiasis/cholecystitis, status post * Transaminitis, trending downward * Choledocholithiasis, status post ERCP * Fatty liver * Diabetes mellitus type 2 * Dyslipidemia * History of GERD * History of asthma Plan: * Monitor liver function tests * Further recommendations depend on clinical course * Patient seen in collaboration with Dr. Arguello Consultation Date/Type/Reason Admit Date/Time Sep 28, 2016 at 19:42 Initial Consult Date 09/29/16 Type of Consultation: Gastroenterology 24 HR Interval Summary Free Text/Dictation Status post cholecystectomy and ERCP Diet to be advanced by surgery Exam/Review of Systems Vital Signs Vitals Vital Signs Date Time Temp Pulse Resp B/P Pulse Ox O2 Delivery O2 Flow Rate FiO2 10/02/16 08:07 98.2 102 18 133/67 97 10/01/16 21:30 Room Air 10/01/16 19:20 2.0 Intake and Output 10/01/16 10/01/16 10/02/16 15:00 23:00 07:00 Intake Total 1000 ml 550 ml 1380 ml Output Total 125 ml 1030 ml Balance 1000 ml 425 ml 350 ml Exam Constitutional: alert, obese, oriented, well developed, No distress Psych: nl mood/affect, no complaints Head: atraumatic, normocephalic Eyes: EOMI, PERRL, nl conjunctiva, nl lids, nl sclera ENMT: nl external ears & nose, nl lips & teeth, nl nasal mucosa & septum Neck: non-tender, supple Respiratory: clear to auscultation, normal air movement Cardiovascular: nl pulses, regular rate and rhythm Gastrointestinal: bowel sounds, distended, hepatomegaly, nl liver, spleen, soft , tender (Mild right upper quadrant tenderness), No ascites, No mass, No rebound or guarding, No splenomegaly Musculoskeletal: nl extremities to inspection Extremities: normal pulses Skin: nl turgor, No rash or lesions Lymph: nl lymph nodes Results Result Diagram: 10/02/16 0535 10/02/16 0535 Results 24 hrs Laboratory Tests Test 10/01/16 11:39 10/01/16 18:42 10/01/16 20:57 10/02/16 05:35 Bedside Glucose 126 156 177 Alanine Aminotransferase (ALT/SGPT) 303 H Albumin 3.5 Albumin/Globulin Ratio 1.29 Alkaline Phosphatase 133 H Anion Gap 16 Aspartate Amino Transf (AST/SGOT) 161 H Basophils # 0.1 Basophils % 0.4 Blood Morphology Comment Blood Urea Nitrogen 5 L Calcium Level 8.6 Carbon Dioxide Level 30 Chloride Level 101 Creatinine 0.64 Direct Bilirubin 0.00 Eosinophils # 0.1 Eosinophils % 0.8 Globulin 2.70 Glucose Level 150 Hematocrit 34.3 L Hemoglobin 11.6 L Indirect Bilirubin 0.5 Lymphocytes # 2.8 Lymphocytes % 21.1 Magnesium Level 1.7 Mean Corpuscular Hemoglobin 28.9 L Mean Corpuscular Hemoglobin Concent 34.0 Mean Corpuscular Volume 85.2 Mean Platelet Volume 8.6 Monocytes # 0.8 Monocytes % 6.1 Neutrophils # 9.3 H Neutrophils % 71.6 Nucleated Red Blood Cells # 0.0 Nucleated Red Blood Cells % 0.0 Platelet Count 228 Potassium Level 3.9 Red Blood Count 4.03 L Red Cell Distribution Width 13.8 Sodium Level 143 Total Bilirubin 0.5 Total Protein 6.2 White Blood Count 13.0 #H Medications Medications Current Medications Ondansetron HCl (Zofran Inj) 4 mg Q6H PRN IV NAUSEA AND/OR VOMITING; Start 08/02 at 22:00 Pantoprazole (Protonix Iv) 40 mg DAILY@06 IV Last administered on 10/02/16 05: 28; Admin Dose 40 MG; Start 09/29/16 at 06:00 Morphine Sulfate (morphine) 2 mg Q4H PRN IV pain Last administered on 06:57; Admin Dose 2 MG; Start 09/28/16 at 22:00 Cholecalciferol (Vitamin D) 400 units DAILY PO Last administered on 10/02/16 09:34; Admin Dose 400 UNITS; Start 09/29/16 at 09:00 Fluoxetine HCl (Prozac) 20 mg DAILY PO Last administered on 10/02/16 08:47; Admin Dose 20 MG; Start 09/29/16 at 09:00 Montelukast Sodium (Singulair) 10 mg QHS PO Last administered on 10/01/16 22: 24; Admin Dose 10 MG; Start 09/29/16 at 21:00 Quetiapine Fumarate (Seroquel) 50 mg HS PO Last administered on 09/30/16 21:19 ; Admin Dose 50 MG; Start 09/29/16 at 21:00 Trazodone HCl (Desyrel) 50 mg QHS PO Last administered on 09/30/16 21:18; Admin Dose 50 MG; Start 09/29/16 at 21:00 Diagnostic Test (Pha) (Accucheck) 1 ea 02 XX Last administered on 09/29/16 02: 28; Admin Dose 1 EA; Start 09/29/16 at 02:00 Atorvastatin Calcium (Lipitor) 20 mg DAILY@21 PO Last administered on 22:23; Admin Dose 20 MG; Start 09/29/16 at 21:00 Miscellaneous Information 1 ea NOTE XX ; Start 09/29/16 at 15:00 Glucose (Glutose) 15 gm Q15M PRN PO DECREASED GLUCOSE; Start 09/29/16 at 15:00 Glucose (Glutose) 22.5 gm Q15M PRN PO DECREASED GLUCOSE; Start 09/29/16 at 15: 00 Dextrose (D50w Syringe) 25 ml Q15M PRN IV DECREASED GLUCOSE; Start 09/29/16 at 15:00 Dextrose (D50w Syringe) 50 ml Q15M PRN IV DECREASED GLUCOSE; Start 09/29/16 at 15:00 Glucagon (Glucagen) 1 mg Q15M PRN IM DECREASED GLUCOSE; Start 09/29/16 at 15:00 Glucose 15 gm 15 gm Q15M PRN BUCCAL DECREASED GLUCOSE; Start 09/29/16 at 15:00 Dextrose/Sodium Chloride (D5-1/2ns) 1,000 ml @ 75 mls/hr [id number] IV Last administered on 10/01/16 22:22; Admin Dose 75 MLS/HR; Start 10/01/16 at 12:00 MOHINDER SHAY Oct 02, 2016 10:09
[2016-10-02] MEDS: SENNA/DOCUSATE NA (8.6MG/50MG) TAB PO SCH ×2 (11:02→20:59)
--- NOTE | 2016-10-02 13:12 | GILP ---
DATE OF PROCEDURE: PROCEDURE: Endoscopic retrograde cholangiopancreatography with sphincterotomy and stone removal. PREMEDICATION: General anesthesia. BRIEF HISTORY AND INDICATIONS: The patient was evaluated for cholelithiasis and abnormal liver func tion tests, MRCP was initially negative. The patient underwent laparoscopic cholecystectomy a few h ours ago and at that time an intraoperative cholangiogram was obtained that showed stones in the dis jared common bile duct with obstruction. This procedure is undertaken on a relatively urgent basis given the findings and surgery. INSTRUMENT USED: Olympus side viewing panendoscope. TECHNIQUE: After informed consent, with the patient/relatives understanding the procedure, its indic ations, potential risks and complications, including but not limited to: allergic reaction, bleeding , perforation or infection, and after all pertinent questions were answered to the patients satisfac tion, the patient/relatives signed witnessed informed consent. Following this, premedication was administered slowly IV push under careful cardiovascular and respi ratory monitoring with pulse oximetry, automatic blood pressure and driver engineer. Once the sedative effect was achieved the patient was place in the prone position in the radiology s pecial procedures suite; the side viewing panendoscope was introduced and advanced under visual cont rol. Careful examination of the upper gastrointestinal tract, both on insertion as well as withdrawal of the instrument disclosed the following findings: ESOPHAGUS: The mucosa of the entire esophagus appears within normal limits. There is no evidence of esophagitis, varices, neoplasm or stricture. No Hiatal Hernia identified. STOMACH: Upon entrance to the stomach air was insufflated, the gastric farley distended normally. Th e mucosa of the fundus, body and antrum of the stomach was carefully examined both head-on and on re troflexion, and shows no abnormalities. There is no evidence of gastritis, ulcers or neoplasm. PYLORUS: The pylorus appears patent and within normal limits, with no evidence of gastric outlet obs truction. DUODENUM: The duodenal mucosa was carefully examined in the duodenal bulb as well as the second por tion of the duodenum and appears unremarkable with no evidence of duodenitis, ulcer or neoplasm. AMPULLA OF VATER: The second portion of duodenum was reached. The ampulla was identified, was mi ulated without difficulty. Two small stones measuring 3 to 4 mm were noted in distal common bile duct. A standard sphincteroto my was performed and both stones were removed with a balloon catheter without difficulty. IMPRESSION: 1. Two 3-mm stones in the distal common bile duct. 2. Post-endoscopic retrograde sphincterotomy and post-stone removal. PLAN: The patient will be continued on observation and postoperative care as already ordered by Dr. Jolley. Dictated By: NORA PAYTON MS/JOSE L Conf#: [id number] DID#: [id number]
--- NOTE | 2016-10-02 14:20 | PN ---
Date/Time of Note Date/Time of Note DATE: 10/02/16 TIME: 14:16 Assessment/Plan VTE Prophylaxis VTE Prophylaxis Intervention: SCD's Lines/Catheters IV [facility] Peripheral IV Urinary Cath still in place: No Assessment/Plan Chief Complaint/Hosp Course 1. Biliary colic from cholelithiasis and choledocholithiasis s/p Lap Nai and now ERCP -pt now reports a new abd pain and distension- R/O Ileus/SBO with KUB -Simethicone and Colace/Senna -GI and Surgery consults appreciated 2. Hyperbilirubinemia with Transaminitis 2/2 above versus Fatty liver-mildly Improved -Hep panel is negative 3. Chronic asthma: stable w/o exacerbation 4. DM type 2 -cont Metformin PPx- SCD's Problems: Subjective 24 Hr Interval Summary Gastrointestinal: flatus, pain Exam/Review of Systems Vital Signs Vitals Vital Signs Date Time Temp Pulse Resp B/P Pulse Ox O2 Delivery O2 Flow Rate FiO2 10/02/16 08:07 98.2 102 18 133/67 97 10/02/16 08:00 Nasal Cannula 2.0 Intake and Output 10/01/16 10/01/16 10/02/16 15:00 23:00 07:00 Intake Total 1000 ml 550 ml 1380 ml Output Total 125 ml 1030 ml Balance 1000 ml 425 ml 350 ml Exam Constitutional: alert Respiratory: clear to auscultation Cardiovascular: regular rate and rhythm Gastrointestinal: distended, soft, tender Musculoskeletal: nl extremities to inspection Results Result Diagram: 10/02/16 0535 10/02/16 0535 Results 24 hrs Laboratory Tests Test 10/01/16 18:42 10/01/16 20:57 10/02/16 05:35 10/02/16 12:05 Bedside Glucose 156 177 140 Alanine Aminotransferase (ALT/SGPT) 303 H Albumin 3.5 Albumin/Globulin Ratio 1.29 Alkaline Phosphatase 133 H Anion Gap 16 Aspartate Amino Transf (AST/SGOT) 161 H Basophils # 0.1 Basophils % 0.4 Blood Morphology Comment Blood Urea Nitrogen 5 L Calcium Level 8.6 Carbon Dioxide Level 30 Chloride Level 101 Creatinine 0.64 Direct Bilirubin 0.00 Eosinophils # 0.1 Eosinophils % 0.8 Globulin 2.70 Glucose Level 150 Hematocrit 34.3 L Hemoglobin 11.6 L Indirect Bilirubin 0.5 Lymphocytes # 2.8 Lymphocytes % 21.1 Magnesium Level 1.7 Mean Corpuscular Hemoglobin 28.9 L Mean Corpuscular Hemoglobin Concent 34.0 Mean Corpuscular Volume 85.2 Mean Platelet Volume 8.6 Monocytes # 0.8 Monocytes % 6.1 Neutrophils # 9.3 H Neutrophils % 71.6 Nucleated Red Blood Cells # 0.0 Nucleated Red Blood Cells % 0.0 Platelet Count 228 Potassium Level 3.9 Red Blood Count 4.03 L Red Cell Distribution Width 13.8 Sodium Level 143 Total Bilirubin 0.5 Total Protein 6.2 White Blood Count 13.0 #H Medications Medications Current Medications Ondansetron HCl (Zofran Inj) 4 mg Q6H PRN IV NAUSEA AND/OR VOMITING; Start 08/02 at 22:00 Pantoprazole (Protonix Iv) 40 mg DAILY@06 IV Last administered on 10/02/16 05: 28; Admin Dose 40 MG; Start 09/29/16 at 06:00 Morphine Sulfate (morphine) 2 mg Q4H PRN IV pain Last administered on 11:03; Admin Dose 2 MG; Start 09/28/16 at 22:00 Cholecalciferol (Vitamin D) 400 units DAILY PO Last administered on 10/02/16 09:34; Admin Dose 400 UNITS; Start 09/29/16 at 09:00 Fluoxetine HCl (Prozac) 20 mg DAILY PO Last administered on 10/02/16 08:47; Admin Dose 20 MG; Start 09/29/16 at 09:00 Montelukast Sodium (Singulair) 10 mg QHS PO Last administered on 10/01/16 22: 24; Admin Dose 10 MG; Start 09/29/16 at 21:00 Quetiapine Fumarate (Seroquel) 50 mg HS PO Last administered on 09/30/16 21:19 ; Admin Dose 50 MG; Start 09/29/16 at 21:00 Trazodone HCl (Desyrel) 50 mg QHS PO Last administered on 09/30/16 21:18; Admin Dose 50 MG; Start 09/29/16 at 21:00 Diagnostic Test (Pha) (Accucheck) 1 ea 02 XX Last administered on 09/29/16 02: 28; Admin Dose 1 EA; Start 2/13/17 at 02:00 Miscellaneous Information 1 ea NOTE XX ; Start 09/29/16 at 15:00 Glucose (Glutose) 15 gm Q15M PRN PO DECREASED GLUCOSE; Start 09/29/16 at 15:00 Glucose (Glutose) 22.5 gm Q15M PRN PO DECREASED GLUCOSE; Start 09/29/16 at 15: 00 Dextrose (D50w Syringe) 25 ml Q15M PRN IV DECREASED GLUCOSE; Start 09/29/16 at 15:00 Dextrose (D50w Syringe) 50 ml Q15M PRN IV DECREASED GLUCOSE; Start 09/29/16 at 15:00 Glucagon (Glucagen) 1 mg Q15M PRN IM DECREASED GLUCOSE; Start 09/29/16 at 15:00 Glucose (Glutose) 15 gm Q15M PRN BUCCAL DECREASED GLUCOSE; Start 09/29/16 at 15 :00 Simethicone (Mylicon) 160 mg Q6 PO Last administered on 10/02/16 11:02; Admin Dose 160 MG; Start 10/02/16 at 12:00 Senna/Docusate Sodium (Senokot-S) 1 tab BID PO Last administered on 10/02/16 11:02; Admin Dose 1 TAB; Start 10/02/16 at 11:00 BRYAN MACHUCA Oct 02, 2016 14:20
[2016-10-02] MEDS ORDERED: MAGNESIUM SULFATE 2 GM/50 ML 50 ML IVPB ONE (14:30)
[2016-10-02] MEDS ORDERED: POTASSIUM CHLORIDE 20 MEQ in SOD CHLORIDE 0.9% 100 ML IVPB ONE (14:30)
--- NOTE | 2016-10-02 15:10 | RADRPT ---
PROCEDURE: XR Abdomen. CLINICAL INDICATION: Ileus versus small bowel obstruction. TECHNIQUE: AP abdomen x-ray. COMPARISON: None. FINDINGS: The bowel gas pattern is normal. There is no evidence of free air or obstruction. Mild gaseous diste nsion of bowel raising the question of mild ileus. There are no abnormal calcifications overlying th e urinary tracts. The osseus structures are unremarkable. Small amounts of oral contrast retained within the cecum. Tu alyson overlies the right upper quadrant. IMPRESSION: 1. No free air or obstruction. Mild gaseous distension of bowel which may reflect mild ileus. RPTAT:AAJJ Physician Diana Date Time Electronically viewed and signed by Physician Diana on 10/02/2016 15:09 JASON/
[2016-10-02] MEDS: QUETIAPINE 25 MG TAB PO SCH (20:59)
[2016-10-02] MEDS: MONTELUKAST 10 MG TAB PO SCH (20:59)
[2016-10-02] MEDS: traZODone 50 MG TAB PO SCH (20:59)
[2016-10-02 21:51] VITALS: BP 142/70; RESP 20
[2016-10-03] MEDS: ACCUCHECK XX SCH (02:00)
[2016-10-03] MEDS: PANTOPRAZOLE 40 MG INJ IV SCH (05:55)
[2016-10-03 06:45] LABS: BASOPHILS % 0.2 % (0.0-2.0); EOSINOPHILS # 0.3 10^3/ul (0.0-0.5); EOSINOPHILS % 2.1 % (0.0-7.0); HEMATOCRIT 35.8 % (37.0-47.0); HEMOGLOBIN 12.3 g/dl (12.0-16.0); LYMPHOCYTES # 2.6 10^3/ul (0.8-2.9); LYMPHOCYTES % 20.5 % (15.0-51.0); MEAN CORPUSCULAR HEMOGLOBIN 29.2 pg (29.0-33.0); MEAN CORPUSCULAR HGB CONC 34.2 g/dl (32.0-37.0); MEAN CORPUSCULAR VOLUME 85.4 fl (82.0-101.0); MEAN PLATELET VOLUME 8.9 fl (7.4-10.4); MONOCYTE # 0.9 10^3/ul (0.3-0.9); MONOCYTES % 6.8 % (0.0-11.0); NEUTROPHILS % 70.4 % (39.0-77.0); PLATELET COUNT 224 10^3/UL (140-440); RED BLOOD COUNT 4.19 10^6/ul (4.20-5.40); RED CELL DISTRIBUTION WIDTH 14.2 % (11.5-14.5); UNCORRECTED WBC 12.8 10^3/ul (4.8-10.8); WHITE BLOOD COUNT 12.8 10^3/ul (4.8-10.8)
[2016-10-03 06:56] LABS: CONDITION 1
[2016-10-03 07:48] LABS: ALBUMIN 3.6 g/dl (3.3-4.9)
[2016-10-03 07:49] LABS: POTASSIUM 3.4 mmol/L (3.5-5.1)
[2016-10-03 07:51] LABS: ALBUMIN/GLOBULIN RATIO 1.28; BILIRUBIN,INDIRECT 0.4 mg/dl (0-1.1); BILIRUBIN,TOTAL 0.4 mg/dl (0.2-1.3); CREATININE 0.51 mg/dl (0.44-1.00); TOTAL PROTEIN 6.4 g/dl (6.1-8.1)
[2016-10-03 07:52] LABS: CALCIUM 8.5 mg/dl (8.4-10.2)
[2016-10-03 08:16] VITALS: BP 128/67; RESP 20
--- NOTE | 2016-10-03 08:22 | CONS ---
Date/Time of Note Date/Time of Note DATE: 10/03/16 TIME: 08:19 Assessment/Plan Assessment/Plan Additional Assessment/Plan Assessment: * Cholelithiasis/cholecystitis, status post cholecystectomy * Transaminitis, trending downward * Choledocholithiasis, status post ERCP 10-01-16: 1. Two 3-mm stones in the distal common bile duct. 2. Post-endoscopic retrograde sphincterotomy and post- stone removal. * Fatty liver * Diabetes mellitus type 2 * Dyslipidemia * History of GERD * History of asthma Plan: * Monitor liver function tests * Further recommendations depend on clinical course * Patient seen in collaboration with Dr. Arguello Consultation Date/Type/Reason Admit Date/Time Sep 28, 2016 at 19:42 Initial Consult Date 09/29/16 Type of Consultation: Gastroenterology 24 HR Interval Summary Free Text/Dictation LFTs trending down Reports less abdominal pain Denies n/v Advanced diet Exam/Review of Systems Vital Signs Vitals Vital Signs Date Time Temp Pulse Resp B/P Pulse Ox O2 Delivery O2 Flow Rate FiO2 10/03/16 08:16 97.0 20 128/67 98 10/02/16 21:51 91 10/02/16 08:00 Nasal Cannula 2.0 Intake and Output 10/02/16 10/02/16 10/03/16 15:00 23:00 07:00 Intake Total 300 ml 1560 ml Output Total 800 ml 40 ml Balance 300 ml 760 ml -40 ml Exam Constitutional: alert, obese, oriented, well developed, No distress Psych: nl mood/affect, no complaints Head: atraumatic, normocephalic Eyes: EOMI, PERRL, nl conjunctiva, nl lids, nl sclera ENMT: nl external ears & nose, nl lips & teeth, nl nasal mucosa & septum Neck: non-tender, supple Respiratory: clear to auscultation, normal air movement Cardiovascular: nl pulses, regular rate and rhythm Gastrointestinal: bowel sounds, distended, hepatomegaly, nl liver, spleen, soft , tender (Mild right upper quadrant tenderness), No ascites, No mass, No rebound or guarding, No splenomegaly Musculoskeletal: nl extremities to inspection Extremities: normal pulses Skin: nl turgor, No rash or lesions Lymph: nl lymph nodes Results Result Diagram: 10/03/16 0540 10/03/16 0540 Results 24 hrs Laboratory Tests Test 10/02/16 12:05 10/02/16 17:00 10/02/16 20:57 10/03/16 05:40 Bedside Glucose 140 128 117 Alanine Aminotransferase (ALT/SGPT) 220 H Albumin 3.6 Albumin/Globulin Ratio 1.28 Alkaline Phosphatase 141 H Anion Gap 13 Aspartate Amino Transf (AST/SGOT) 83 H Basophils # 0.0 Basophils % 0.2 Blood Urea Nitrogen 3 L Calcium Level 8.5 Carbon Dioxide Level 28 Chloride Level 103 Creatinine 0.51 Direct Bilirubin 0.00 Eosinophils # 0.3 Eosinophils % 2.1 Globulin 2.80 Glucose Level 120 Hematocrit 35.8 L Hemoglobin 12.3 Indirect Bilirubin 0.4 Lymphocytes # 2.6 Lymphocytes % 20.5 Magnesium Level 2.1 Mean Corpuscular Hemoglobin 29.2 Mean Corpuscular Hemoglobin Concent 34.2 Mean Corpuscular Volume 85.4 Mean Platelet Volume 8.9 Monocytes # 0.9 Monocytes % 6.8 Neutrophils # 9.0 H Neutrophils % 70.4 Nucleated Red Blood Cells # 0.0 Nucleated Red Blood Cells % 0.0 Platelet Count 224 Potassium Level 3.4 L Red Blood Count 4.19 L Red Cell Distribution Width 14.2 Sodium Level 141 Total Bilirubin 0.4 Total Protein 6.4 White Blood Count 12.8 H Test 10/03/16 07:47 Bedside Glucose 113 Medications Medications Current Medications Ondansetron HCl (Zofran Inj) 4 mg Q6H PRN IV NAUSEA AND/OR VOMITING; Start 08/02 at 22:00 Pantoprazole (Protonix Iv) 40 mg DAILY@06 IV Last administered on 10/03/16 05: 55; Admin Dose 40 MG; Start 09/29/16 at 06:00 Morphine Sulfate (morphine) 2 mg Q4H PRN IV pain Last administered on 21:03; Admin Dose 2 MG; Start 09/28/16 at 22:00 Cholecalciferol (Vitamin D) 400 units DAILY PO Last administered on 10/02/16 09:34; Admin Dose 400 UNITS; Start 09/29/16 at 09:00 Fluoxetine HCl (Prozac) 20 mg DAILY PO Last administered on 10/02/16 08:47; Admin Dose 20 MG; Start 09/29/16 at 09:00 Montelukast Sodium (Singulair) 10 mg QHS PO Last administered on 10/02/16 20: 59; Admin Dose 10 MG; Start 09/29/16 at 21:00 Quetiapine Fumarate (Seroquel) 50 mg HS PO Last administered on 10/02/16 20:59 ; Admin Dose 50 MG; Start 09/29/16 at 21:00 Trazodone HCl (Desyrel) 50 mg QHS PO Last administered on 10/02/16 20:59; Admin Dose 50 MG; Start 09/29/16 at 21:00 Diagnostic Test (Pha) (Accucheck) 1 ea 02 XX Last administered on 09/29/16 02: 28; Admin Dose 1 EA; Start 09/29/16 at 02:00 Miscellaneous Information 1 ea NOTE XX ; Start 09/29/16 at 15:00 Glucose (Glutose) 15 gm Q15M PRN PO DECREASED GLUCOSE; Start 09/29/16 at 15:00 Glucose (Glutose) 22.5 gm Q15M PRN PO DECREASED GLUCOSE; Start 09/29/16 at 15: 00 Dextrose (D50w Syringe) 25 ml Q15M PRN IV DECREASED GLUCOSE; Start 09/29/16 at 15:00 Dextrose (D50w Syringe) 50 ml Q15M PRN IV DECREASED GLUCOSE; Start 09/29/16 at 15:00 Glucagon (Glucagen) 1 mg Q15M PRN IM DECREASED GLUCOSE; Start 09/29/16 at 15:00 Glucose (Glutose) 15 gm Q15M PRN BUCCAL DECREASED GLUCOSE; Start 09/29/16 at 15 :00 Simethicone (Mylicon) 160 mg Q6 PO Last administered on 10/03/16 05:56; Admin Dose 160 MG; Start 10/02/16 at 12:00 Senna/Docusate Sodium (Senokot-S) 1 tab BID PO Last administered on 10/02/16 20:59; Admin Dose 1 TAB; Start 10/02/16 at 11:00 MOHINDER SHAY Oct 03, 2016 08:22
[2016-10-03] MEDS: CHOLECALCIFEROL 400 UNITS TAB PO SCH (08:28)
[2016-10-03] MEDS: FLUOXETINE 20 MG CAP PO SCH (08:28)
[2016-10-03] MEDS: metFORMIN 500 MG TAB PO SCH ×2 (08:28→18:06)
[2016-10-03] MEDS: SENNA/DOCUSATE NA (8.6MG/50MG) TAB PO SCH ×2 (08:28→21:36)
[2016-10-03] MEDS ORDERED: MAGNESIUM HYDROXIDE 30ML CUP PO ONE (10:00)
[2016-10-03] MEDS: morphine 2 MG INJ IV PRN ×2 (11:27→20:14)
[2016-10-03] MEDS ORDERED: POTASSIUM CHLORIDE (SR) 20 MEQ TAB PO STA (14:25)
--- NOTE | 2016-10-03 14:34 | PDOCDIS ---
Discharge Instructions CONDITION Patient Condition: Good HOME CARE INSTRUCTIONS: Diet Instructions: Regular ACTIVITY: Activity Restrictions: No Restrictions FOLLOW UP/APPOINTMENTS Appointments F/U WITH YOUR PCP IN 1-2 WEEKS BRYAN MACHUCA Oct 03, 2016 14:34
[2016-10-03] MEDS ORDERED: TRAM50TA2 PO (14:35)
[2016-10-03 20:00] VITALS: BP 132/74; PULSE 88; RESP 18
--- NOTE | 2016-10-03 20:04 | PN ---
Date/Time of Note Date/Time of Note DATE: 10/02/16 TIME: 20:01 Assessment/Plan Lines/Catheters IV Catheter Type (from Nrs): Saline Lock Sahu in Place (from Nrs): No Assessment/Plan Chief Complaint/Hosp Course 1. Abdominal pain with cholelithiasis and ? mild cholecystitis. MRCP noted. s/ p 3 port lap jordana, liver bx, ioc, ercp 10/01 -Diet as tolerated -IV abx -Pain control 2. Transaminitis and hyper bilirubinemia 2nd persistent Choledocholithiasis s/p ERCP -Monitor 3. Diabetes mellitus -Nutrition and medication control 4. Dyslipidemia -Nutrition and medication control 5. GERD -PPI -Diet and lifestyle optimization 6. History of CVA with right-sided droop -Medical and cardiac optimization Thank you, Late entry 10/02 Problems: Subjective 24 Hr Interval Summary s/p 3 port lap jordana, liver bx, ioc with + cbd obstruction 10/01. s/p ERCP . Minimal pain. No fevers or chills. No nausea vomiting. No chest pain or shortness of breath. No visual or neurologic changes. No dysuria. Exam/Review of Systems Vital Signs Vitals Vital Signs Date Time Temp Pulse Resp B/P Pulse Ox O2 Delivery O2 Flow Rate FiO2 10/03/16 13:19 Nasal Cannula 2.0 10/03/16 08:16 97.0 20 128/67 98 10/02/16 21:51 91 Intake and Output 10/02/16 10/02/16 10/03/16 15:00 23:00 07:00 Intake Total 300 ml 1560 ml Output Total 800 ml 40 ml Balance 300 ml 760 ml -40 ml Exam Free Text/Dictation Constitutional: alert, oriented, No distress Psych: Anxiety, min Head: atraumatic, normocephalic, No hematomas Eyes: EOMI, PERRL, nl conjunctiva, nl sclera, No icteric ENMT: mucosa pink and moist, nl external ears & nose, nl lips & teeth Neck: non-tender, supple, No jvd Respiratory: normal air movement, No congested cough, No labored breathing Cardiovascular: regular rate and rhythm, No edema Gastrointestinal: soft, min tender, No distended, No rebound or guarding. Drain. Musculoskeletal: nl extremities to inspection, No joint tenderness Extremities: normal pulses, No calf tenderness, No cyanosis Neurological: nl strength, No confused Skin: nl turgor, No diaphoresis, No rash or lesions Lymph: nl lymph nodes Results Result Diagram: 10/03/16 0540 10/03/16 0540 KVNG OLIVA MD Oct 03, 2016 20:03
--- NOTE | 2016-10-03 20:05 | PN ---
Date/Time of Note Date/Time of Note DATE: 10/03/16 TIME: 20:04 Assessment/Plan Lines/Catheters IV Catheter Type (from Nrs): Saline Lock Sahu in Place (from Nrs): No Assessment/Plan Chief Complaint/Hosp Course 1. Abdominal pain with cholelithiasis and ? mild cholecystitis. MRCP noted. s/ p 3 port lap jordana, liver bx, ioc, ercp 10/01 -Drain > will dc -Diet as tolerated -IV abx -Pain control 2. Transaminitis and hyper bilirubinemia 2nd persistent Choledocholithiasis s/p ERCP -Monitor 3. Diabetes mellitus -Nutrition and medication control 4. Dyslipidemia -Nutrition and medication control 5. GERD -PPI -Diet and lifestyle optimization 6. History of CVA with right-sided droop -Medical and cardiac optimization Thank you, Problems: Subjective 24 Hr Interval Summary s/p 3 port lap jordana, liver bx, ioc with + cbd obstruction 10/01. s/p ERCP . Minimal pain. No fevers or chills. No nausea vomiting. No chest pain or shortness of breath. No visual or neurologic changes. No dysuria. Exam/Review of Systems Vital Signs Vitals Vital Signs Date Time Temp Pulse Resp B/P Pulse Ox O2 Delivery O2 Flow Rate FiO2 10/03/16 13:19 Nasal Cannula 2.0 10/03/16 08:16 97.0 20 128/67 98 10/02/16 21:51 91 Intake and Output 10/02/16 10/02/16 10/03/16 15:00 23:00 07:00 Intake Total 300 ml 1560 ml Output Total 800 ml 40 ml Balance 300 ml 760 ml -40 ml Exam Free Text/Dictation Constitutional: alert, oriented, No distress Psych: Anxiety, min Head: atraumatic, normocephalic, No hematomas Eyes: EOMI, PERRL, nl conjunctiva, nl sclera, No icteric ENMT: mucosa pink and moist, nl external ears & nose, nl lips & teeth Neck: non-tender, supple, No jvd Respiratory: normal air movement, No congested cough, No labored breathing Cardiovascular: regular rate and rhythm, No edema Gastrointestinal: soft, min tender, No distended, No rebound or guarding. Drain. Musculoskeletal: nl extremities to inspection, No joint tenderness Extremities: normal pulses, No calf tenderness, No cyanosis Neurological: nl strength, No confused Skin: nl turgor, No diaphoresis, No rash or lesions Lymph: nl lymph nodes Results Result Diagram: 10/03/16 0540 10/03/16 0540 KVNG OLIVA MD Oct 03, 2016 20:04
[2016-10-03] MEDS: MONTELUKAST 10 MG TAB PO SCH (21:36)
[2016-10-03] MEDS: traZODone 50 MG TAB PO SCH (21:36)
[2016-10-03] MEDS: QUETIAPINE 25 MG TAB PO SCH (21:37)
--- NOTE | 2016-10-04 08:00 | DS ---
DATE OF ADMISSION: 09/28/2016 DATE OF DISCHARGE: 10/03/2016 DISCHARGE DIAGNOSES: 1. Biliary colic with cholelithiasis, as well as choledocholithiasis, now status post laparoscopic cholecystectomy and ERCP. 2. Constipation. Now resolved. 3. Transaminitis secondary to #1. 4. Asthma. Stable. 5. Type 2 diabetes. Stable. HOSPITAL COURSE: The patient is a 61-year-old female with a history of diabetes, asthma, and depres zia. The patient presented with abdominal pain for a day. The patient had MRCP that showed choleli thiasis, no clear cholecystitis, no evidence of biliary ductal dilation or choledocholithiasis. The patient's gallbladder ultrasound showed hepatic steatosis, cholelithiasis, without evidence of chol ecystitis. Normal caliber with biliary system. The patient had transaminitis. It was felt that there may be some CBD. Hep panel was negative. The patient was taken to surgery with Dr. Jolley, where the patient had a laparoscopic cholecystectomy. A cholangiogram was done intraoperatively that show ed a stone in the CBD. The patient was taken for ERCP by GI, where two 3-mm stones were removed fro m this distal common bile duct. The patient did have some subsequent abdominal pain, even after the ERCP and laparoscopic cholecystectomy. A KUB was done to rule out any SBO. KUB showed no free air or obstruction. Mild gaseous distention, which may reflect a mild ileus. The patient was given ___ __ medications and medication for constipation. The patient had a BM. The patient did tolerate a r egular diet, had no nausea or vomiting. Once again, the patient did have a BM and it was normal. T he patient's postoperative drain was removed. On the day of discharge the patient's vitals, labs, an d physical exam were stable. She had no further complaints, and her questions were answered. CONDITION ON DISCHARGE: Stable. DISPOSITION: To home. MEDICATIONS: The patient is to continue her usual home medications. The patient was given a prescri ption for tramadol 50 mg p.o. q.4h. p.r.n. for pain, as she did not want any opiates. FOLLOWUP: The patient is to follow up with her PCP in 1 to 2 weeks and with specialist as indicated. Greater than 30 minutes was spent coordinating the discharge of this patient. Dictated By: BRYAN FONSECA/NTS Conf#: [id number] DID#: [id number]
== END 2016-10-03 23:10 | disposition home or self-care (01) | DRG 418 ==
LOC: E/R 12:27 → MS2 19:42
PROVIDERS: ADMIT Family Medicine; ATTEND Family Medicine
PROC: BF031ZZ Plain Radiography of Gallbladder and Bile Ducts using Low Osmolar Contrast (ICD-10-PCS; 2016-10-01)
PROC: 0FB04ZX Excision of Liver, Percutaneous Endoscopic Approach, Diagnostic (ICD-10-PCS; 2016-10-01)
PROC: 0FC98ZZ Extirpation of Matter from Common Bile Duct, Via Natural or Artificial Opening Endoscopic (ICD-10-PCS; 2016-10-01)
PROC: 0FT44ZZ Resection of Gallbladder, Percutaneous Endoscopic Approach (ICD-10-PCS; principal; 2016-10-01 12:30)
DX: K80.61 Calculus of gallbladder and bile duct with cholecystitis, unspecified, with obstruction (principal); K56.7 Ileus, unspecified; E11.8 Type 2 diabetes mellitus with unspecified complications; K76.0 Fatty (change of) liver, not elsewhere classified; E80.6 Other disorders of bilirubin metabolism; K21.9 Gastro-esophageal reflux disease without esophagitis; I69.992 Facial weakness following unspecified cerebrovascular disease; K44.9 Diaphragmatic hernia without obstruction or gangrene; K59.00 Constipation, unspecified; J45.909 Unspecified asthma, uncomplicated; R14.0 Abdominal distension (gaseous)
CPT/HCPCS: 36415; 71010; 74000; 74176; 74181; 74300; 76705; 80053; 80061; 81001; 81003; 82962; 83036; 83690; 83735; 84484; 85025; 85610; 85730; 86706; 86708; 86709; 86803; 87340; 88304; 88307; 88312; 88313; 93005; 96374; 96375; C9113; J0330; J0690; J1170; J1815; J1885; J2175; J2250; J2270; J2405; J2710; J2765; J3010; J3475; J3480; J7030; J7042; Q9967

== ENCOUNTER 2017-08-26 07:07 | Day surgery (SDC) | END 2017-08-26 09:52 | disposition home or self-care (01) ==

== ENCOUNTER 2017-12-27 12:48 | Emergency (ER) | END 2017-12-27 17:23 | disposition home or self-care (01) ==

== ENCOUNTER 2018-06-22 18:16 | Emergency (ER) | END 2018-06-22 20:44 | disposition home or self-care (01) ==